=== PATIENT | female | born 1955 | race Two or more races ===

== ENCOUNTER 2017-11-23 14:09 | Inpatient (IN) | payer MEDICAID, MEDICARE ==
[~2017-11-23] VITALS: Ht 165.1 cm; Wt 85.2 kg
[2017-11-23 15:16] LABS: Hematocrit 42.9 % (36.0-46.0); Hemoglobin 14.6 g/dL (12.2-16.2); Mean Corpuscular Hemoglobin 29.9 pg (28.0-32.0); Mean Corpuscular Hgb Conc. 34.1 g/dL (32.0-36.0); Mean Corpuscular Volume 87.6 fL (80.0-100.0); Platelet Count (auto) 158 10^3/uL (140-450); Red Blood Cells 4.89 10^6/uL (4.0-5.20); Red Cell Distribution Width 13.5 % (11.8-14.3); White Blood Cell 17.5 10^3/uL (4.4-10.8)
[2017-11-23 15:25] LABS: Band Neutrophils % (manual) 0; Basophils % (manual) 0 (0.0-2.0); Blast Cells 0; Metamyelocytes % 0; Myelocytes % 0; Promyelocytes % 0; Reactive Lymphocytes 0
[2017-11-23 15:29] LABS: Alanine Aminotransferase 32 U/L (13-56); Albumin 3.6 g/dL (3.4-5.0); Anion Gap 12 (5-15); Aspartate Aminotransferase 22 U/L (15-37); BUN/Creatinine Ratio 15.1; Blood Urea Nitrogen 14 mg/dL (7-18); Calcium 8.9 mg/dL (8.5-10.1); Carbon Dioxide 20 mmol/L (21-32); Chloride 106 mmol/L (98-107); GFR African American 78 mL/min; GFR Non-African American 65 mL/min; Glucose 140 mg/dL (74-106); Magnesium 1.7 mg/dL (1.6-2.6); Potassium 3.6 mmol/L (3.5-5.1); Sodium 138 mmol/L (136-145)
[2017-11-23 15:34] LABS: Alkaline Phosphatase 88 U/L (45-117); Bilirubin, Total 0.5 mg/dL (0.2-1.0); Total Protein 7.7 g/dL (6.4-8.2)
[2017-11-23 15:44] LABS: Eosinophils % (manual) 1 (0-7); Lymphocytes % (manual) 4 (10.0-50.0); Monocytes % (manual) 7 (0-12)
[2017-11-23 15:50] LABS: Urine Bacteria MOD /hpf (None Seen); Urine Blood 2+ /uL (Negative); Urine Specific Gravity 1.016 (1.001-1.035); Urine WBC 8 /hpf (0 - 5)
[2017-11-23] MEDS ORDERED: SODIUM CHLORIDE 0.9% 500 ML IVB ONE (16:43)
[2017-11-23] MEDS ORDERED: ONDANSETRON HCL 4 MG/2 ML VIAL IV ONE (16:45)
[2017-11-23] MEDS ORDERED: MORPHINE SULFATE 8mg/ml INJ SDV IV ONE (16:45)
[2017-11-23] MEDS ORDERED: SODIUM CHLORIDE 0.9% 2,000 ML IV ONE (18:45)
[2017-11-23] MEDS ORDERED: NITROGLYCERIN 0.4 MG SL TAB SL PRN (18:45)
[2017-11-23] MEDS ORDERED: HYDROcodone-ACET 5/325MG TAB PO PRN (18:45)
[2017-11-23] MEDS ORDERED: MORPHINE SULFATE 8mg/ml INJ SDV IV PRN ×2 (18:45)
[2017-11-23] MEDS ORDERED: PROMETHAZINE HCL 25 MG/ML 1ML IV PRN (18:45)
[2017-11-23] MEDS ORDERED: PIPERACILLIN-TAZOB 3.375GM 100 ML IV ONE (18:45)
[2017-11-23] MEDS ORDERED: LORazepam 0.5 MG TAB PO PRN (18:45)
[2017-11-23] MEDS ORDERED: PANTOPRAZOLE 40 MG/10 ML VIAL IV ONE (18:45)
[2017-11-23] MEDS ORDERED: TEMAZEPAM 15 MG CAP PO PRN (18:45)
[2017-11-23] MEDS: ENOXAPARIN SOD 40 MG/0.4 ML SYRINGE SC SCH (19:10)
[2017-11-23] MEDS: SODIUM CHLORIDE 0.9% 1,000 ML IV SCH (20:45)
[2017-11-23 21:00] VITALS: BP 123/72
[2017-11-23 22:00] VITALS: BP 123/72
[2017-11-23] MEDS ORDERED: ATOR1TAB PO (23:26)
[2017-11-23] MEDS ORDERED: LISI40TA PO (23:26)
[2017-11-23] MEDS ORDERED: HYDR12.56 PO (23:26)
[2017-11-23] MEDS ORDERED: GLIM1TAB2 PO (23:27)
[2017-11-23] MEDS: PIPERACILLIN-TAZOB 3.375GM 100 ML IV SCH (23:32)
[2017-11-24] MEDS: SODIUM CHLORIDE 0.9% 1,000 ML IV SCH ×2 (04:39→14:43)
[2017-11-24 05:00] VITALS: BP 111/61
[2017-11-24] MEDS: PIPERACILLIN-TAZOB 3.375GM 100 ML IV SCH ×4 (05:37→23:33)
[2017-11-24] MEDS: ACETAMINOPHEN 500 MG TAB PO PRN ×2 (05:45→20:55)
[2017-11-24 06:28] LABS: Basophils # (auto) 0.1 uL; Basophils % (auto) 0.3 % (0.0-2.0); Eosinophils # (auto) 0 uL; Hemoglobin 12.5 g/dL (12.2-16.2); Lymphocytes # (auto) 1.6 uL; Lymphocytes % (auto) 10.9 % (10.0-50.0); Mean Corpuscular Hemoglobin 30.2 pg (28.0-32.0); Mean Corpuscular Hgb Conc. 34.8 g/dL (32.0-36.0); Mean Corpuscular Volume 86.8 fL (80.0-100.0); Monocytes # (auto) 0.8 uL; Monocytes % (auto) 5.4 % (0.0-12.0); Neutrophils # (auto) 12.1 uL; Neutrophils % (auto) 83.4 % (37.0-80.0); Nucleated Red Blood Cells % 0.2 %; Platelet Count (auto) 141 10^3/uL (140-450); Red Blood Cells 4.15 10^6/uL (4.0-5.20); Red Cell Distribution Width 13.6 % (11.8-14.3); White Blood Cell 14.6 10^3/uL (4.4-10.8)
[2017-11-24 06:46] LABS: Albumin 2.8 g/dL (3.4-5.0); BUN/Creatinine Ratio 17.9; Bilirubin, Total 0.6 mg/dL (0.2-1.0); Calcium 7.8 mg/dL (8.5-10.1); Total Protein 6.5 g/dL (6.4-8.2)
[2017-11-24 06:48] LABS: Potassium 2.8 mmol/L (3.5-5.1)
[2017-11-24] MEDS ORDERED: POTASSIUM CHL 20 Meq TABLET PO ONE (07:00)
[2017-11-24] MEDS ORDERED: HYDROcodone-ACET 5/325MG TAB PO PRN (07:45)
[2017-11-24] MEDS: CARISOPRODOL 350 MG TAB PO PRN ×2 (08:50→17:50)
[2017-11-24 08:58] VITALS: BP 102/56
[2017-11-24] MEDS: ENOXAPARIN SOD 40 MG/0.4 ML SYRINGE SC SCH (09:32)
[2017-11-24] MEDS: PANTOPRAZOLE 40 MG TAB PO SCH (09:32)
[2017-11-24 13:00] VITALS: BP 112/65
[2017-11-24 17:01] VITALS: BP 126/67
[2017-11-24] MEDS ORDERED: SODIUM CHLORIDE 0.9% 1,000 ML IV ONE (17:15)
[2017-11-24] MEDS ORDERED: ONDANSETRON HCL 4 MG/2 ML VIAL IV PRN (17:15)
[2017-11-24] MEDS: HYDROcodone-ACET 10/325MG TAB PO PRN (17:50)
[2017-11-24 18:00] VITALS: BP 138/71
[2017-11-25] MEDS: SODIUM CHLORIDE 0.9% 1,000 ML IV SCH ×3 (00:50→21:02)
[2017-11-25] MEDS: PIPERACILLIN-TAZOB 3.375GM 100 ML IV SCH ×4 (05:34→23:42)
[2017-11-25] MEDS: HYDROcodone-ACET 10/325MG TAB PO PRN ×5 (05:41→23:51)
[2017-11-25 05:44] LABS: Basophils # (auto) 0 uL; Basophils % (auto) 0.3 % (0.0-2.0); Eosinophils # (auto) 0 uL; Eosinophils % (auto) 0.2 % (0.0-7.0); Hematocrit 34.8 % (36.0-46.0); Hemoglobin 11.9 g/dL (12.2-16.2); Lymphocytes # (auto) 1.4 uL; Lymphocytes % (auto) 13.5 % (10.0-50.0); Mean Corpuscular Hgb Conc. 34.2 g/dL (32.0-36.0); Mean Corpuscular Volume 87.8 fL (80.0-100.0); Monocytes # (auto) 0.6 uL; Monocytes % (auto) 6.3 % (0.0-12.0); Neutrophils # (auto) 8.1 uL; Neutrophils % (auto) 79.7 % (37.0-80.0); Platelet Count (auto) 133 10^3/uL (140-450); Red Blood Cells 3.96 10^6/uL (4.0-5.20); Red Cell Distribution Width 13.9 % (11.8-14.3); White Blood Cell 10.2 10^3/uL (4.4-10.8)
[2017-11-25 06:04] LABS: Albumin 2.6 g/dL (3.4-5.0); BUN/Creatinine Ratio 13.3; Calcium 8.2 mg/dL (8.5-10.1); Potassium 3.2 mmol/L (3.5-5.1)
[2017-11-25 06:06] LABS: Bilirubin, Total 0.7 mg/dL (0.2-1.0); Total Protein 6.6 g/dL (6.4-8.2)
[2017-11-25 06:23] VITALS: BP 139/75
[2017-11-25] MEDS: CARISOPRODOL 350 MG TAB PO PRN ×2 (07:25→15:34)
[2017-11-25 08:18] VITALS: BP 141/66
[2017-11-25] MEDS: PANTOPRAZOLE 40 MG TAB PO SCH (10:21)
[2017-11-25] MEDS: ENOXAPARIN SOD 40 MG/0.4 ML SYRINGE SC SCH (10:21)
[2017-11-25] MEDS ORDERED: SODIUM CHLORIDE 0.9% 2,500 ML IV ONE (10:30)
[2017-11-25] MEDS ORDERED: MANNITOL 20 % (20GM/100ML) 62.5 ML IV ONE ×2 (10:30→19:00)
[2017-11-25] MEDS: HYDROmorphone HCL 2 MG/ML VL IV PRN ×3 (11:35→18:49)
[2017-11-25 12:00] VITALS: BP 142/72
[2017-11-25 16:55] VITALS: BP 149/81
[2017-11-25] MEDS: TAMSULOSIN HYDROCHLORIDE 0.4 MG CAP PO SCH (18:48)
[2017-11-25 22:00] VITALS: BP 135/77
[2017-11-26 05:00] VITALS: BP 138/75
[2017-11-26] MEDS: PIPERACILLIN-TAZOB 3.375GM 100 ML IV SCH (05:30)
[2017-11-26] MEDS: SODIUM CHLORIDE 0.9% 1,000 ML IV SCH ×3 (06:31→21:25)
[2017-11-26 08:00] VITALS: BP 140/74
[2017-11-26 08:39] VITALS: BP 140/74
[2017-11-26] MEDS: ENOXAPARIN SOD 40 MG/0.4 ML SYRINGE SC SCH (10:00)
[2017-11-26] MEDS: LEVOFLOXACIN 500 MG TAB PO SCH (11:14)
[2017-11-26] MEDS: PANTOPRAZOLE 40 MG TAB PO SCH (11:14)
[2017-11-26 13:00] VITALS: BP 155/78
[2017-11-26 16:55] VITALS: BP 138/75
[2017-11-26] MEDS: TAMSULOSIN HYDROCHLORIDE 0.4 MG CAP PO SCH (17:11)
[2017-11-26] MEDS: ACETAMINOPHEN 500 MG TAB PO PRN (21:43)
[2017-11-26 22:00] VITALS: BP 138/75
[2017-11-27 04:04] VITALS: BP 130/74
[2017-11-27 08:51] LABS: INR 0.95 (0.9-1.15); Partial Thromboplastin Time 28.9 sec (22.64-33.71); Prothrombin Time 10.3 sec (9.37-12.3)
[2017-11-27 09:00] VITALS: BP 148/80
[2017-11-27] MEDS: LEVOFLOXACIN 500 MG TAB PO SCH (10:00)
[2017-11-27] MEDS: PANTOPRAZOLE 40 MG TAB PO SCH (10:00)
[2017-11-27] MEDS ORDERED: ceFAZolin 1GM/100ML 50 ML IV ONE (11:04)
[2017-11-27] MEDS ORDERED: MIDAZOLAM HCL 1MG/1ML-2 ML VIAL ONE (11:48)
[2017-11-27] MEDS ORDERED: PROPOFOL 10 MG/ML 20 ML IV ONE (11:48)
[2017-11-27] MEDS ORDERED: LIDOCAINE 1% (LOCAL ANESTH.) PF 5ml SDV ONE (12:06)
[2017-11-27] MEDS ORDERED: METOCLOPRAMIDE HCL 5MG/ml INJ 2ml VIAL ONE (12:07)
[2017-11-27] MEDS ORDERED: fentaNYL CITRATE 100 MCG/2 ML VL ONE (12:16)
[2017-11-27] MEDS ORDERED: MORPHINE SULFATE 8mg/ml INJ SDV IV PRN (12:30)
[2017-11-27] MEDS ORDERED: NALOXONE HCL 0.4 MG/ML VIAL IV PRN (12:30)
[2017-11-27] MEDS ORDERED: ONDANSETRON HCL 4 MG/2 ML VIAL IV ONE (12:30)
[2017-11-27] MEDS ORDERED: ACCU-CHEK COMFORT CURVE STRIP VI ONE (12:30)
[2017-11-27] MEDS: SODIUM CHLORIDE 0.9% 1,000 ML IV SCH (12:43)
[2017-11-27 16:50] VITALS: BP 149/73
[2017-11-27] MEDS: TAMSULOSIN HYDROCHLORIDE 0.4 MG CAP PO SCH (17:12)
[2017-11-27 22:00] VITALS: BP 137/63
[2017-11-28 05:00] VITALS: BP 145/74
[2017-11-28 08:00] VITALS: BP 150/68
[2017-11-28 08:20] VITALS: BP 150/68
[2017-11-28] MEDS: PANTOPRAZOLE 40 MG TAB PO SCH (10:26)
[2017-11-28] MEDS: LEVOFLOXACIN 500 MG TAB PO SCH (10:26)
[2017-11-28 12:54] VITALS: BP 153/75
== END 2017-11-28 14:30 | disposition home or self-care (01) | DRG 720 ==
LOC: ER 14:09 → EDBD 14:10 → TELE 14:10 → TELE-WESTW 21:00
PROVIDERS: ADMIT Internal Medicine; ATTEND Family Medicine
PROC: 0TF Urinary System, Fragmentation (ICD-10-PCS; principal; 2017-11-27 12:01)
DX: A41.9 Sepsis, unspecified organism (principal); N13.2 Hydronephrosis with renal and ureteral calculous obstruction; E86.0 Dehydration; F17.210 Nicotine dependence, cigarettes, uncomplicated; N30.01 Acute cystitis with hematuria; Z83.3 Family history of diabetes mellitus; Z87.442 Personal history of urinary calculi
CPT/HCPCS: 36415; 74176; 80053; 81001; 82962; 83690; 83735; 84484; 85007; 85025; 85027; 85610; 85730; 87040; 87086; 87088; 87186; 93005; 94761; 96361; 96365; 96375; C9113; J0690; J2250; J2270; J2405; J2543; J2704

== ENCOUNTER 2020-08-28 18:39 | Inpatient (IN) | payer MEDICAID ==
[~2020-08-28] VITALS: Ht 162.6 cm; Wt 80.9 kg
[~2020-08-28 18:39] MED LIST: ATOR-47 PO; GLIM-5 PO; HYDR12.56 PO; LISI40TA11 PO
[2020-08-28 19:24] LABS: Basophils # (auto) 0 10 ^3/uL (0-0.2); Basophils % (auto) 0.6 % (0.0-2.0); Eosinophils # (auto) 0 10 ^3/uL (0-0.8); Hematocrit 42.9 % (36.0-46.0); Hemoglobin 14.9 g/dL (12.2-16.2); Lymphocytes # (auto) 0.6 10 ^3/uL (0.4-5.4); Lymphocytes % (auto) 14.9 % (10.0-50.0); Mean Corpuscular Hemoglobin 30.2 pg (28.0-32.0); Mean Corpuscular Hgb Conc. 34.7 g/dL (32.0-36.0); Monocytes # (auto) 0.3 10 ^3/uL (0-1.3); Monocytes % (auto) 8.1 % (0.0-12.0); Neutrophils # (auto) 3.2 10 ^3/uL (1.6-8.6); Neutrophils % (auto) 76.4 % (37.0-80.0); Nucleated Red Blood Cells % 0.1 %; Platelet Count (auto) 124 10^3/uL (140-450); Red Blood Cells 4.93 10^6/uL (4.0-5.20); Red Cell Distribution Width 13.4 % (11.8-14.3); White Blood Cell 4.2 10^3/uL (4.4-10.8)
[2020-08-28 19:44] LABS: Alanine Aminotransferase 162 U/L (13-56); Albumin 3.6 g/dL (3.4-5.0); Anion Gap 13 (5-15); Aspartate Aminotransferase 114 U/L (15-37); BUN/Creatinine Ratio 16.2; Blood Urea Nitrogen 12 mg/dL (7-18); Calcium 8.9 mg/dL (8.5-10.1); Carbon Dioxide 25 mmol/L (21-32); Chloride 93 mmol/L (98-107); GFR African American 101 mL/min; GFR Non-African American 83 mL/min; Glucose 279 mg/dL (74-106); Potassium 3.4 mmol/L (3.5-5.1); Sodium 131 mmol/L (136-145)
[2020-08-28 19:55] LABS: Alkaline Phosphatase 82 U/L (45-117); Bilirubin, Total 0.6 mg/dL (0.2-1.0); Total Protein 7.9 g/dL (6.4-8.2)
[2020-08-28] MEDS ORDERED: ACETAMINOPHEN 325 MG TAB PO ONE (20:30)
[2020-08-28] MEDS ORDERED: ZINC SULFATE 220mg CAP or TAB PO ONE (20:30)
[2020-08-28] MEDS ORDERED: DexAMETHasone SOD PHOS 10MG/1ML VIAL INJ IV ONE (20:30)
[2020-08-28] MEDS ORDERED: ASCORBIC ACID 500 MG TAB PO ONE (20:30)
[2020-08-28] MEDS ORDERED: AZITHROMYCIN 500MG/ 250ML 250 ML IV ONE (20:30)
[2020-08-28] MEDS ORDERED: ONDANSETRON HCL 4 MG/2 ML VIAL IV PRN (22:00)
[2020-08-28] MEDS: ASCORBIC ACID 500 MG TAB PO SCH (22:00)
[2020-08-28] MEDS ORDERED: NITROGLYCERIN 0.4 MG SL TAB SL PRN (22:15)
[2020-08-28] MEDS ORDERED: MORPHINE SULF INJ 2 MG/ML SYRINGE 1ML IV PRN (22:15)
[2020-08-29] VITALS: BP 111/66
[2020-08-29 00:23] VITALS: BP 111/66
[2020-08-29] MEDS: SODIUM CHLORIDE 0.9% 1,000 ML IV SCH ×3 (00:45→18:00)
[2020-08-29 06:27] LABS: Basophils # (auto) 0 10 ^3/uL (0-0.2); Basophils % (auto) 0.4 % (0.0-2.0); Eosinophils # (auto) 0 10 ^3/uL (0-0.8); Hematocrit 38.5 % (36.0-46.0); Hemoglobin 13.3 g/dL (12.2-16.2); Lymphocytes # (auto) 0.5 10 ^3/uL (0.4-5.4); Lymphocytes % (auto) 17.3 % (10.0-50.0); Mean Corpuscular Hemoglobin 30.1 pg (28.0-32.0); Mean Corpuscular Hgb Conc. 34.5 g/dL (32.0-36.0); Mean Corpuscular Volume 87.1 fL (80.0-100.0); Monocytes # (auto) 0.2 10 ^3/uL (0-1.3); Monocytes % (auto) 6.3 % (0.0-12.0); Neutrophils # (auto) 2.2 10 ^3/uL (1.6-8.6); Nucleated Red Blood Cells % 0.4 %; Platelet Count (auto) 120 10^3/uL (140-450); Red Blood Cells 4.42 10^6/uL (4.0-5.20); Red Cell Distribution Width 13.4 % (11.8-14.3); White Blood Cell 2.9 10^3/uL (4.4-10.8)
[2020-08-29 08:00] VITALS: BP 126/72
[2020-08-29] MEDS: ACETAMINOPHEN 500 MG TAB PO PRN ×2 (09:01→17:12)
[2020-08-29] MEDS: PANTOPRAZOLE 40 MG TAB PO SCH (09:34)
[2020-08-29] MEDS: AZITHROMYCIN 500MG/ 250ML 250 ML IV SCH (09:34)
[2020-08-29] MEDS: ENOXAPARIN SOD 40 MG/0.4 ML SYRINGE SC SCH (09:34)
[2020-08-29] MEDS: ASCORBIC ACID 500 MG TAB PO SCH ×2 (09:34→21:12)
[2020-08-29] MEDS: CHOLECALCIFEROL (VITD3) 2,000 UNIT CAP/TAB PO SCH (09:34)
[2020-08-29] MEDS: ZINC SULFATE 220mg CAP or TAB PO SCH (09:35)
[2020-08-29 09:39] LABS: Albumin 3.3 g/dL (3.4-5.0); Potassium 3.6 mmol/L (3.5-5.1)
[2020-08-29 09:45] LABS: BUN/Creatinine Ratio 26.1; Bilirubin, Total 0.4 mg/dL (0.2-1.0); Calcium 8.2 mg/dL (8.5-10.1); Total Protein 7.7 g/dL (6.4-8.2)
[2020-08-29] MEDS: ALBUTEROL SULF HFA 90MCG INH 200DOSE IN SCH ×3 (11:58→19:10)
[2020-08-29 15:58] VITALS: BP 154/77
[2020-08-29 18:11] LABS: Basophils # (auto) 0 10 ^3/uL (0-0.2); Basophils % (auto) 1.2 % (0.0-2.0); Eosinophils # (auto) 0 10 ^3/uL (0-0.8); Eosinophils % (auto) 0.1 % (0.0-7.0); Hematocrit 38.4 % (36.0-46.0); Hemoglobin 13.3 g/dL (12.2-16.2); Lymphocytes % (auto) 27.7 % (10.0-50.0); Mean Corpuscular Hemoglobin 30.4 pg (28.0-32.0); Mean Corpuscular Hgb Conc. 34.7 g/dL (32.0-36.0); Mean Corpuscular Volume 87.6 fL (80.0-100.0); Monocytes # (auto) 0.3 10 ^3/uL (0-1.3); Monocytes % (auto) 7.3 % (0.0-12.0); Neutrophils # (auto) 2.3 10 ^3/uL (1.6-8.6); Neutrophils % (auto) 63.7 % (37.0-80.0); Nucleated Red Blood Cells % 0.2 %; Platelet Count (auto) 119 10^3/uL (140-450); Red Blood Cells 4.38 10^6/uL (4.0-5.20); Red Cell Distribution Width 13.6 % (11.8-14.3); White Blood Cell 3.6 10^3/uL (4.4-10.8)
[2020-08-29] MEDS ORDERED: DEXTROSE (50%) 50ML SYRG IV PRN (22:30)
[2020-08-29] MEDS: ACCU-CHEK COMFORT CURVE STRIP VI SCH (23:02)
[2020-08-29] MEDS ORDERED: InsuLIN REG 1unit/0.01ml Soln (100units/ml) SC SCH (23:15)
[2020-08-30] VITALS: BP 143/80
[2020-08-30] MEDS: HYDROcodone-ACET 5/325MG TAB PO PRN ×2 (00:11→09:28)
[2020-08-30] MEDS: ACETAMINOPHEN 500 MG TAB PO PRN (01:28)
[2020-08-30] MEDS: SODIUM CHLORIDE 0.9% 1,000 ML IV SCH ×2 (05:00→14:00)
[2020-08-30] MEDS: ACCU-CHEK COMFORT CURVE STRIP VI SCH ×3 (06:32→17:56)
[2020-08-30] MEDS: InsuLIN REG 1unit/0.01ml Soln (100units/ml) SC SCH ×3 (06:33→17:56)
[2020-08-30] MEDS ORDERED: ACCU-CHEK COMFORT CURVE STRIP VI SCH (07:00)
[2020-08-30] MEDS ORDERED: InsuLIN REG 1unit/0.01ml Soln (100units/ml) SC SCH (07:00)
[2020-08-30 07:26] LABS: Basophils # (auto) 0 10 ^3/uL (0-0.2); Basophils % (auto) 0.5 % (0.0-2.0); Eosinophils # (auto) 0 10 ^3/uL (0-0.8); Hematocrit 34.7 % (36.0-46.0); Hemoglobin 12.2 g/dL (12.2-16.2); Lymphocytes # (auto) 0.9 10 ^3/uL (0.4-5.4); Lymphocytes % (auto) 30.7 % (10.0-50.0); Mean Corpuscular Hemoglobin 30.5 pg (28.0-32.0); Mean Corpuscular Hgb Conc. 35.2 g/dL (32.0-36.0); Mean Corpuscular Volume 86.6 fL (80.0-100.0); Monocytes # (auto) 0.1 10 ^3/uL (0-1.3); Monocytes % (auto) 4.8 % (0.0-12.0); Neutrophils # (auto) 1.9 10 ^3/uL (1.6-8.6); Nucleated Red Blood Cells % 0.3 %; Platelet Count (auto) 105 10^3/uL (140-450); Red Blood Cells 4.01 10^6/uL (4.0-5.20); Red Cell Distribution Width 13.5 % (11.8-14.3)
[2020-08-30 07:39] LABS: Potassium 3.1 mmol/L (3.5-5.1)
[2020-08-30 07:48] LABS: Albumin 2.7 g/dL (3.4-5.0); BUN/Creatinine Ratio 20.8; Bilirubin, Total 0.4 mg/dL (0.2-1.0); Calcium 7.6 mg/dL (8.5-10.1); Total Protein 6.7 g/dL (6.4-8.2)
[2020-08-30 07:54] VITALS: BP 116/55
[2020-08-30] MEDS: ENOXAPARIN SOD 40 MG/0.4 ML SYRINGE SC SCH (09:27)
[2020-08-30] MEDS: PANTOPRAZOLE 40 MG TAB PO SCH (09:27)
[2020-08-30] MEDS: ASCORBIC ACID 500 MG TAB PO SCH (09:27)
[2020-08-30] MEDS: AZITHROMYCIN 500MG/ 250ML 250 ML IV SCH (09:27)
[2020-08-30] MEDS: ZINC SULFATE 220mg CAP or TAB PO SCH (09:27)
[2020-08-30] MEDS: CHOLECALCIFEROL (VITD3) 2,000 UNIT CAP/TAB PO SCH (09:28)
[2020-08-30 16:00] VITALS: BP 122/58
[2020-08-30] MEDS ORDERED: CHOL1TAB42 PO (19:16)
[2020-08-30] MEDS ORDERED: AZIT250T8 PO (19:16)
[2020-08-30] MEDS ORDERED: ZINCCAP PO (19:16)
[2020-08-30] MEDS ORDERED: ASCO500T11 PO (19:16)
[2020-08-30] MEDS ORDERED: ALBUAER3 IN (19:16)
[2020-08-30 19:46] VITALS: BP 122/58
[2020-08-30] MEDS: ALBUTEROL SULF HFA 90MCG INH 200DOSE IN SCH ×2 (20:29)
== END 2020-08-30 22:00 | disposition home or self-care (01) | DRG 137 ==
LOC: ER 18:40 → OVERFLOW 22:17 → WEST WING 23:10
PROVIDERS: ADMIT Internal Medicine; ATTEND Internal Medicine
DX: U07.1 COVID-19 (principal); D69.6 Thrombocytopenia, unspecified; J12.82 Pneumonia due to coronavirus disease 2019; I10 Essential (primary) hypertension; E11.9 Type 2 diabetes mellitus without complications; Z83.3 Family history of diabetes mellitus
CPT/HCPCS: 36415; 71045; 80053; 82962; 84484; 85025; 87040; 87426; 93005; 94640; 96365; 96366; 96375; G0378; J1100; J1815

== ENCOUNTER → 2023-02-02 | Emergency (ER) | payer OTHER, MEDICAID ==
[~2023-02-02] VITALS: Ht 162.6 cm; Wt 83.5 kg
[~2023-02-02] MED LIST changes: +ALBUAER3 IN; +ASCO500T11 PO; +AUG875T PO; +AZIT-81 PO; +CHOL1TAB42 PO; +GLIM-38 PO; -GLIM-5 PO; -HYDR12.56 PO; +HYDR12.59 PO; -LISI40TA11 PO; +LISI40TA16 PO; +OXYMETAZOLINE HCL 0.05 % NASAL SPRAY 15ML EACHNOSTRI ONE; +PRED20TA2 PO; +ZINCCAP PO
[2023-02-03 02:15] VITALS: BP 170/68
== END | disposition home or self-care (01) ==
LOC: ER 23:06
DX: R04.0 Epistaxis (principal); F17.210 Nicotine dependence, cigarettes, uncomplicated; Z87.442 Personal history of urinary calculi; Z79.899 Other long term (current) drug therapy
CPT/HCPCS: 30901

== ENCOUNTER 2023-02-04 17:57 | Emergency (ER) | payer OTHER, MEDICAID ==
[~2023-02-04 17:57] MED LIST changes: -AUG875T PO; -OXYMETAZOLINE HCL 0.05 % NASAL SPRAY 15ML EACHNOSTRI ONE; -PRED20TA2 PO
[2023-02-04 19:01] LABS: Basophils # (auto) 0.1 10 ^3/uL (0-0.2); Basophils % (auto) 1.1 % (0.0-2.0); Eosinophils # (auto) 0 10 ^3/uL (0-0.8); Eosinophils % (auto) 0.4 % (0.0-7.0); Hematocrit 40.7 % (36.0-46.0); Hemoglobin 13.8 g/dL (12.2-16.2); Lymphocytes # (auto) 2.7 10 ^3/uL (0.4-5.4); Lymphocytes % (auto) 24.1 % (10.0-50.0); Mean Corpuscular Hemoglobin 27.6 pg (28.0-32.0); Mean Corpuscular Hgb Conc. 33.9 g/dL (32.0-36.0); Mean Corpuscular Volume 81.4 fL (80.0-100.0); Monocytes # (auto) 0.8 10 ^3/uL (0-1.3); Monocytes % (auto) 6.9 % (0.0-12.0); Neutrophils # (auto) 7.7 10 ^3/uL (1.6-8.6); Neutrophils % (auto) 67.5 % (37.0-80.0); Nucleated Red Blood Cells % 0.1 %; Red Blood Cells 5.01 10^6/uL (4.0-5.20); Red Cell Distribution Width 14.9 % (11.8-14.3); White Blood Cell 11.3 10^3/uL (4.4-10.8)
[2023-02-04 19:18] LABS: Calcium 9.6 mg/dL (8.5-10.1); Potassium 3.9 mmol/L (3.5-5.1)
[2023-02-04 19:21] LABS: BUN/Creatinine Ratio 16.1 (10.0-20.0); Bilirubin, Total 0.8 mg/dL (0.2-1.0); Total Protein 8.5 g/dL (6.4-8.2)
[2023-02-04] MEDS ORDERED: AUG875T PO (21:03)
[2023-02-04] MEDS ORDERED: PRED20TA2 PO (21:03)
[2023-02-04 21:30] VITALS: BP 134/71
== END 2023-02-04 21:30 | disposition home or self-care (01) ==
LOC: ER 17:57
DX: J01.00 Acute maxillary sinusitis, unspecified (principal); Z48.00 Encounter for change or removal of nonsurgical wound dressing; I10 Essential (primary) hypertension; E11.9 Type 2 diabetes mellitus without complications; F17.210 Nicotine dependence, cigarettes, uncomplicated; Z87.442 Personal history of urinary calculi; Z79.899 Other long term (current) drug therapy
CPT/HCPCS: 36415; 70486; 80053; 84484; 85025; 93005

== ENCOUNTER 2023-12-17 11:57 | Inpatient (IN) | payer OTHER, MEDICAID ==
[~2023-12-17] VITALS: Ht 167.6 cm; Wt 91.0 kg
[~2023-12-17 11:57] MED LIST changes: +AUG875T PO; +AZIT-185 PO; -AZIT-81 PO; +PRED20TA2 PO
[2023-12-17 12:59] LABS: Urine Bacteria FEW /hpf (None Seen); Urine Blood 3+ /uL (Negative); Urine Budding Yeast OCCASIONAL /hpf (None Seen); Urine Clarity Turbid (Clear); Urine Color Colorless (Yellow); Urine Protein, UAD 1+ (Negative); Urine Urobilinogen Normal (Negative); Urine WBC 36 /hpf (0 - 5); Urine pH 5.5 (5.0-9.0)
[2023-12-17 13:50] LABS: Basophils # (auto) 0.1 10 ^3/uL (0-0.2); Basophils % (auto) 0.9 % (0.0-2.0); Eosinophils # (auto) 0.2 10 ^3/uL (0-0.8); Eosinophils % (auto) 2.9 % (0.0-7.0); Hematocrit 38.8 % (36.0-46.0); Lymphocytes # (auto) 2.2 10 ^3/uL (0.4-5.4); Lymphocytes % (auto) 29.1 % (10.0-50.0); Mean Corpuscular Hemoglobin 27.5 pg (28.0-32.0); Mean Corpuscular Hgb Conc. 33.4 g/dL (32.0-36.0); Mean Corpuscular Volume 82.2 fL (80.0-100.0); Monocytes # (auto) 0.4 10 ^3/uL (0-1.3); Monocytes % (auto) 5.3 % (0.0-12.0); Neutrophils # (auto) 4.8 10 ^3/uL (1.6-8.6); Neutrophils % (auto) 61.8 % (37.0-80.0); Red Blood Cells 4.72 10^6/uL (4.0-5.20); Red Cell Distribution Width 15.6 % (11.8-14.3); White Blood Cell 7.7 10^3/uL (4.4-10.8)
[2023-12-17] MEDS: SODIUM CHLORIDE 0.9% 1,000 ML IVB ONE (13:51)
[2023-12-17] MEDS: ONDANSETRON HCL 4 MG/2 ML VIAL IV ONE (13:52)
[2023-12-17] MEDS: KETOROLAC TROMETH 30 MG/ML 1ML VIAL IV ONE (13:52)
[2023-12-17 13:58] LABS: Chloride 105 mmol/L (98-107); Potassium 3.7 mmol/L (3.5-5.1); Sodium 139 mmol/L (136-145)
[2023-12-17 13:59] LABS: Anion Gap 8 (5-15); Calcium 10.5 mg/dL (8.5-10.1); Carbon Dioxide 26 mmol/L (20-30)
[2023-12-17 14:04] LABS: BUN/Creatinine Ratio 20.8 (10.0-20.0); Blood Urea Nitrogen 16 mg/dL (9-23); Glucose 137 mg/dL (74-106)
[2023-12-17] MEDS ORDERED: ONDANSETRON HCL 4 MG/2 ML VIAL IV PRN (18:30)
[2023-12-17] MEDS ORDERED: DOCUSATE SOD 100 MG CAP PO PRN (18:30)
[2023-12-17] MEDS ORDERED: DEXTROSE (50%) 50ML SYRG IV PRN (18:30)
[2023-12-17] MEDS ORDERED: NITROGLYCERIN 0.4 MG SL TAB SL PRN (18:30)
[2023-12-17] MEDS ORDERED: MORPHINE SULFATE INJ 2 MG/ml SYRG IV PRN (18:30)
[2023-12-17] MEDS ORDERED: GAB100C PO (18:31)
[2023-12-17] MEDS ORDERED: HYDR25TA5 PO (18:31)
[2023-12-17] MEDS ORDERED: ROSU40TA47 PO (18:31)
[2023-12-17] MEDS ORDERED: FENO145T27 PO (18:31)
[2023-12-17] MEDS ORDERED: LISI10TA34 PO (18:31)
[2023-12-17] MEDS: SODIUM CHLORIDE 0.9% 1,000 ML IV ONE (21:02)
[2023-12-17] MEDS: PANTOPRAZOLE 40 MG TAB PO ONE (21:03)
[2023-12-17] MEDS: HYDROcodone-ACET 5/325MG TAB PO PRN (21:03)
[2023-12-17] MEDS: TAMSULOSIN HYDROCHLORIDE 0.4 MG CAP PO SCH (21:09)
[2023-12-18] VITALS (9 sets, daily range): BP systolic 140–152; BP diastolic 65–76; PULSE 71–88; RESP 16–19; TEMP 97.9–98.5; O2SAT 94–98
[2023-12-18] MEDS: GABAPENTIN 100 MG CAP PO SCH (01:52)
[2023-12-18] MEDS: ACCU-CHEK COMFORT CURVE STRIP VI SCH (01:53)
[2023-12-18] MEDS: InsuLIN REG 1unit/0.01ml Soln (100units/ml) SC SCH (02:03)
[2023-12-18 04:42] LABS: Basophils # (auto) 0 10 ^3/uL (0-0.2); Basophils % (auto) 0.9 % (0.0-2.0); Eosinophils # (auto) 0.2 10 ^3/uL (0-0.8); Eosinophils % (auto) 3.2 % (0.0-7.0); Hematocrit 34.3 % (36.0-46.0); Hemoglobin 11.3 g/dL (12.2-16.2); Lymphocytes # (auto) 1.9 10 ^3/uL (0.4-5.4); Lymphocytes % (auto) 34.1 % (10.0-50.0); Mean Corpuscular Hemoglobin 27.3 pg (28.0-32.0); Mean Corpuscular Hgb Conc. 33.1 g/dL (32.0-36.0); Mean Corpuscular Volume 82.6 fL (80.0-100.0); Monocytes # (auto) 0.3 10 ^3/uL (0-1.3); Monocytes % (auto) 5.9 % (0.0-12.0); Neutrophils # (auto) 3.1 10 ^3/uL (1.6-8.6); Neutrophils % (auto) 55.9 % (37.0-80.0); Nucleated Red Blood Cells % 0.1 %; Red Blood Cells 4.15 10^6/uL (4.0-5.20); Red Cell Distribution Width 15.7 % (11.8-14.3); White Blood Cell 5.6 10^3/uL (4.4-10.8)
[2023-12-18 04:57] LABS: Alanine Aminotransferase 78 U/L (7-40); Albumin 4.3 g/dL (3.2-4.8); Alkaline Phosphatase 62 U/L (46-116); Anion Gap 5 (5-15); Aspartate Aminotransferase 62 U/L (13-40); BUN/Creatinine Ratio 25.6 (10.0-20.0); Blood Urea Nitrogen 21 mg/dL (9-23); Calcium 9.8 mg/dL (8.5-10.1); Carbon Dioxide 26 mmol/L (20-30); Chloride 107 mmol/L (98-107); Glucose 165 mg/dL (74-106); Potassium 3.9 mmol/L (3.5-5.1); Sodium 138 mmol/L (136-145); Triglycerides 439 mg/dL (< 150)
[2023-12-18 04:58] LABS: Bilirubin, Total 0.3 mg/dL (0.2-1.0); Cholesterol 257 mg/dL (< 200); HDL Cholesterol 28 mg/dL (40-59); Total Protein 6.9 g/dL (5.7-8.2)
[2023-12-18] MEDS ORDERED: METF-371 PO (05:20)
[2023-12-18] MEDS ORDERED: INSU1INJ19 SC (05:20)
[2023-12-18] MEDS ORDERED: GLIM4TAB42 PO (05:20)
[2023-12-18] MEDS ORDERED: LISI20TA56 PO (07:49)
[2023-12-18] MEDS ORDERED: OMEP1CAP70 PO (07:49)
[2023-12-18] MEDS ORDERED: EMPA1TAB3 PO (07:49)
[2023-12-18] MEDS: ATORVASTATIN 20 MG TAB PO SCH (09:22)
[2023-12-18] MEDS: PANTOPRAZOLE 40 MG TAB PO SCH (09:24)
[2023-12-18] MEDS: ENOXAPARIN SOD 40 MG/0.4 ML SYRINGE SC SCH (09:26)
[2023-12-18] MEDS: cefTRIAXone 1GM/50ML D5W 50 ML IV SCH (09:27)
[2023-12-18] MEDS: hydroCHLOROthiazide 25 MG TAB PO SCH (09:29)
[2023-12-18] MEDS: LISINOPRIL 5 MG TAB PO SCH (09:32)
[2023-12-18] MEDS: ACETAMINOPHEN 325 MG TAB PO PRN (09:36)
[2023-12-18] MEDS: FENOFIBRATE 145MG TABLET PO SCH (10:00)
[2023-12-18] MEDS: MORPHINE SULFATE INJ 2 MG/ml SYRG IV PRN (16:00)
[2023-12-19] VITALS (8 sets, daily range): BP systolic 127–163; BP diastolic 68–83; PULSE 68–97; RESP 18–21; TEMP 97.7–98.1; O2SAT 92–98
[2023-12-19 06:43] LABS: Chloride 105 mmol/L (98-107); Sodium 136 mmol/L (136-145)
[2023-12-19 06:45] LABS: Anion Gap 6 (5-15); Calcium 9.6 mg/dL (8.7-10.4); Carbon Dioxide 25 mmol/L (20-30)
[2023-12-19 06:50] LABS: BUN/Creatinine Ratio 17.1 (10.0-20.0); Blood Urea Nitrogen 13 mg/dL (9-23); Glucose 291 mg/dL (74-106)
[2023-12-19 07:03] LABS: Basophils # (auto) 0 10 ^3/uL (0-0.2); Basophils % (auto) 0.9 % (0.0-2.0); Eosinophils # (auto) 0.2 10 ^3/uL (0-0.8); Eosinophils % (auto) 3.8 % (0.0-7.0); Hematocrit 34.5 % (36.0-46.0); Hemoglobin 11.5 g/dL (12.2-16.2); Lymphocytes # (auto) 1.5 10 ^3/uL (0.4-5.4); Lymphocytes % (auto) 32.2 % (10.0-50.0); Mean Corpuscular Hemoglobin 27.7 pg (28.0-32.0); Mean Corpuscular Hgb Conc. 33.5 g/dL (32.0-36.0); Mean Corpuscular Volume 82.7 fL (80.0-100.0); Monocytes # (auto) 0.3 10 ^3/uL (0-1.3); Monocytes % (auto) 6.1 % (0.0-12.0); Neutrophils # (auto) 2.6 10 ^3/uL (1.6-8.6); Nucleated Red Blood Cells % 0.1 %; Red Blood Cells 4.17 10^6/uL (4.0-5.20); Red Cell Distribution Width 15.7 % (11.8-14.3); White Blood Cell 4.5 10^3/uL (4.4-10.8)
[2023-12-20 01:00] VITALS: BP 122/62; PULSE 84; RESP 18; TEMP 98.1; O2SAT 93
[2023-12-20 05:00] VITALS: BP 136/74; PULSE 84; RESP 18; TEMP 97.6; O2SAT 94
[2023-12-20 07:38] LABS: Anion Gap 8 (5-15); Basophils # (auto) 0.1 10 ^3/uL (0-0.2); Carbon Dioxide 25 mmol/L (20-30); Chloride 103 mmol/L (98-107); Eosinophils # (auto) 0.2 10 ^3/uL (0-0.8); Eosinophils % (auto) 3.1 % (0.0-7.0); Hematocrit 35.8 % (36.0-46.0); Lymphocytes # (auto) 1.8 10 ^3/uL (0.4-5.4); Lymphocytes % (auto) 32.4 % (10.0-50.0); Mean Corpuscular Hemoglobin 27.7 pg (28.0-32.0); Mean Corpuscular Hgb Conc. 33.5 g/dL (32.0-36.0); Mean Corpuscular Volume 82.5 fL (80.0-100.0); Monocytes # (auto) 0.3 10 ^3/uL (0-1.3); Neutrophils # (auto) 3.3 10 ^3/uL (1.6-8.6); Neutrophils % (auto) 58.5 % (37.0-80.0); Nucleated Red Blood Cells % 0.1 %; Potassium 3.8 mmol/L (3.5-5.1); Red Blood Cells 4.35 10^6/uL (4.0-5.20); Red Cell Distribution Width 15.5 % (11.8-14.3); Sodium 136 mmol/L (136-145); White Blood Cell 5.7 10^3/uL (4.4-10.8)
[2023-12-20 07:40] LABS: Calcium 10.1 mg/dL (8.7-10.4)
[2023-12-20 07:44] LABS: BUN/Creatinine Ratio 17.1 (10.0-20.0); Blood Urea Nitrogen 12 mg/dL (9-23); Glucose 287 mg/dL (74-106)
[2023-12-20 08:00] VITALS: PULSE 84; PULSE 89; RESP 18; O2SAT 94
[2023-12-20 09:00] VITALS: BP 164/75; PULSE 80; RESP 18; TEMP 98.2; O2SAT 96
[2023-12-20 13:00] VITALS: BP 167/71; PULSE 84; RESP 20; TEMP 98.4; O2SAT 95
[2023-12-20] MEDS ORDERED: TAMS-35 PO (17:40)
[2023-12-20] MEDS ORDERED: CEPH250C PO (17:40)
[2023-12-20 18:36] VITALS: BP 142/70; PULSE 89; RESP 18; TEMP 98.7; O2SAT 95
[2023-12-21] MEDS ORDERED: LISINOPRIL 20 MG TAB PO SCH (10:00)
== END 2023-12-20 19:30 | disposition home or self-care (01) | DRG 690 ==
LOC: ER 11:57 → TELE 18:29 → TELE-WESTW 12-18 05:00
PROVIDERS: ADMIT Nurse Practitioner Family; ATTEND Internal Medicine
DX: N30.01 Acute cystitis with hematuria (principal); N13.6 Pyonephrosis; K80.20 Calculus of gallbladder without cholecystitis without obstruction; E11.9 Type 2 diabetes mellitus without complications; I10 Essential (primary) hypertension; E78.5 Hyperlipidemia, unspecified; K76.0 Fatty (change of) liver, not elsewhere classified; E66.9 Obesity, unspecified; Z87.442 Personal history of urinary calculi; Z79.899 Other long term (current) drug therapy; Z79.2 Long term (current) use of antibiotics; Z87.891 Personal history of nicotine dependence; Z79.84 Long term (current) use of oral hypoglycemic drugs; Z83.3 Family history of diabetes mellitus; Z68.32 Body mass index [BMI] 32.0-32.9, adult
CPT/HCPCS: 36415; 71045; 74176; 80048; 80053; 80061; 81001; 82962; 83036; 84439; 84443; 85025; 87086; G0378; J1815; J1885; J2405

== ENCOUNTER 2024-03-03 09:47 | Inpatient (IN) | payer OTHER, MEDICAID ==
[~2024-03-03] VITALS: Ht 162.6 cm; Wt 78.4 kg
[~2024-03-03 09:47] MED LIST changes: -ALBUAER3 IN; -ASCO500T11 PO; -ATOR-47 PO; -AUG875T PO; -AZIT-185 PO; +CEPH250C PO; -CHOL1TAB42 PO; +EMPA1TAB3 PO; +FENO145T27 PO; +GAB100C PO; +GABA-1250 PO; -GLIM-38 PO; +GLIM4TAB42 PO; -HYDR12.59 PO; +HYDR25TA5 PO; +INSU1INJ19 SC; +LISI20TA56 PO; -LISI40TA16 PO; +METF-371 PO; +OMEP1CAP70 PO; -PRED20TA2 PO; +ROSU40TA47 PO; +TAMS-35 PO; -ZINCCAP PO; +ZOFR4T PO
[2024-03-03 10:51] LABS: Urine Bacteria FEW /hpf (None Seen); Urine Blood 2+ /uL (Negative); Urine Budding Yeast OCCASIONAL /hpf (None Seen); Urine Clarity Clear (Clear); Urine Color Light-Yellow (Yellow); Urine Protein, UAD 1+ (Negative); Urine Specific Gravity 1.016 (1.001-1.035); Urine Urobilinogen Normal (Negative); Urine WBC 31 /hpf (0 - 5); Urine pH 5.5 (5.0-9.0)
[2024-03-03 11:20] LABS: Basophils # (auto) 0.1 10 ^3/uL (0-0.2); Basophils % (auto) 0.9 % (0.0-2.0); Eosinophils # (auto) 0.2 10 ^3/uL (0-0.8); Eosinophils % (auto) 3.9 % (0.0-7.0); Hematocrit 37.9 % (36.0-46.0); Hemoglobin 12.7 g/dL (12.2-16.2); Lymphocytes # (auto) 1.8 10 ^3/uL (0.4-5.4); Lymphocytes % (auto) 30.3 % (10.0-50.0); Mean Corpuscular Hemoglobin 27.7 pg (28.0-32.0); Mean Corpuscular Hgb Conc. 33.4 g/dL (32.0-36.0); Mean Corpuscular Volume 82.9 fL (80.0-100.0); Monocytes # (auto) 0.3 10 ^3/uL (0-1.3); Monocytes % (auto) 4.9 % (0.0-12.0); Neutrophils # (auto) 3.6 10 ^3/uL (1.6-8.6); Red Blood Cells 4.58 10^6/uL (4.0-5.20); Red Cell Distribution Width 15.2 % (11.8-14.3)
[2024-03-03] MEDS: SODIUM CHLORIDE 0.9% 1,000 ML IV ONE (11:21)
[2024-03-03] MEDS: ONDANSETRON HCL 4 MG/2 ML VIAL IV ONE ×2 (11:32→13:16)
[2024-03-03] MEDS: MORPHINE SULFATE INJ 2 MG/ml SYRG IV ONE (11:33)
[2024-03-03 11:43] LABS: Chloride 103 mmol/L (98-107); Potassium 3.5 mmol/L (3.5-5.1); Sodium 137 mmol/L (136-145)
[2024-03-03 11:44] LABS: Anion Gap 8 (5-15); Calcium 9.7 mg/dL (8.7-10.4); Carbon Dioxide 26 mmol/L (20-30)
[2024-03-03 11:49] LABS: BUN/Creatinine Ratio 14.6 (10.0-20.0); Blood Urea Nitrogen 12 mg/dL (9-23); Glucose 262 mg/dL (74-106)
[2024-03-03] MEDS ORDERED: NITROGLYCERIN 0.4 MG SL TAB SL PRN (13:45)
[2024-03-03] MEDS ORDERED: DOCUSATE SOD 100 MG CAP PO PRN (13:45)
[2024-03-03] MEDS: SODIUM CHLORIDE 0.9% 1,000 ML IV SCH (14:01)
[2024-03-03 14:47] LABS: INR 1.08 (0.9-1.15); Partial Thromboplastin Time 30.7 SEC (24.5-34.5); Prothrombin Time 11.4 sec (9.3-11.8)
[2024-03-03 15:20] VITALS: PULSE 89; RESP 15; O2SAT 90
[2024-03-03] MEDS: cefTRIAXone 1GM/50ML D5W 50 ML IV ONE (15:29)
[2024-03-03 17:30] VITALS: BP 162/70; PULSE 89; RESP 16; TEMP 98; O2SAT 90
[2024-03-03] MEDS: TAMSULOSIN HYDROCHLORIDE 0.4 MG CAP PO SCH (19:04)
[2024-03-03] MEDS: MORPHINE SULFATE INJ 2 MG/ml SYRG IV PRN (19:49)
[2024-03-03 20:00] VITALS: PULSE 71; RESP 18
[2024-03-03 21:00] VITALS: BP 154/63; PULSE 87; RESP 20; TEMP 97.9; O2SAT 92
[2024-03-04] VITALS (12 sets, daily range): BP systolic 110–158; BP diastolic 56–83; PULSE 70–100; RESP 13–24; TEMP 96.4–99.2; O2SAT 91–97
[2024-03-04] MEDS ORDERED: DEXTROSE (50%) 50ML SYRG IV PRN (00:15)
[2024-03-04] MEDS: InsuLIN REG 1unit/0.01ml Soln (100units/ml) SC SCH ×2 (05:17→22:05)
[2024-03-04] MEDS: ACCU-CHEK COMFORT CURVE STRIP VI SCH (05:22)
[2024-03-04] MEDS: PANTOPRAZOLE 40 MG TAB PO SCH (05:22)
[2024-03-04 06:38] LABS: Alanine Aminotransferase 61 U/L (7-40); Albumin 3.9 g/dL (3.2-4.8); Alkaline Phosphatase 52 U/L (46-116); Anion Gap 7 (5-15); BUN/Creatinine Ratio 15.1 (10.0-20.0); Blood Urea Nitrogen 11 mg/dL (9-23); Calcium 9.4 mg/dL (8.7-10.4); Carbon Dioxide 25 mmol/L (20-30); Chloride 108 mmol/L (98-107); Glucose 206 mg/dL (74-106); Potassium 3.8 mmol/L (3.5-5.1); Sodium 140 mmol/L (136-145)
[2024-03-04 06:39] LABS: Aspartate Aminotransferase 72 U/L (13-40); Basophils # (auto) 0.1 10 ^3/uL (0-0.2); Basophils % (auto) 1.1 % (0.0-2.0); Bilirubin, Total 0.3 mg/dL (0.2-1.0); Eosinophils # (auto) 0.1 10 ^3/uL (0-0.8); Eosinophils % (auto) 2.9 % (0.0-7.0); Hematocrit 33.8 % (36.0-46.0); Hemoglobin 11.4 g/dL (12.2-16.2); Lymphocytes # (auto) 1.6 10 ^3/uL (0.4-5.4); Lymphocytes % (auto) 33.5 % (10.0-50.0); Mean Corpuscular Hemoglobin 27.8 pg (28.0-32.0); Mean Corpuscular Hgb Conc. 33.6 g/dL (32.0-36.0); Mean Corpuscular Volume 82.8 fL (80.0-100.0); Monocytes # (auto) 0.3 10 ^3/uL (0-1.3); Monocytes % (auto) 5.2 % (0.0-12.0); Neutrophils # (auto) 2.8 10 ^3/uL (1.6-8.6); Neutrophils % (auto) 57.3 % (37.0-80.0); Nucleated Red Blood Cells % 0.2 %; Red Blood Cells 4.08 10^6/uL (4.0-5.20); Red Cell Distribution Width 14.9 % (11.8-14.3); Total Protein 6.3 g/dL (5.7-8.2); White Blood Cell 4.9 10^3/uL (4.4-10.8)
[2024-03-04] MEDS: Fenofibrate 1 TAB PO SCH (08:37)
[2024-03-04] MEDS: ATORVASTATIN 20 MG TAB PO SCH (08:51)
[2024-03-04] MEDS: cefTRIAXone 1GM/50ML D5W 50 ML IV SCH (08:51)
[2024-03-04] MEDS: metroNIDAZOLE 500MG/100ML 100 ML IV SCH (14:00)
[2024-03-04] MEDS: IODIXANOL 320MG/ML 100ML BTL IV ONE (15:31)
[2024-03-04] MEDS: fentaNYL CITRATE 100 MCG/2 ML VL ONE (15:46)
[2024-03-04] MEDS: MIDAZOLAM HCL 2MG/2ML 2ml VIAL (1mg/ml) ONE (15:46)
[2024-03-04] MEDS: LIDOCAINE 2%HCL (LOCAL ANESTH.) INJ 20ML MDV ONE (15:58)
[2024-03-04] MEDS: hydrALAZINE HCL 20 MG/ML VL ONE (16:06)
[2024-03-04] MEDS: ONDANSETRON HCL 4 MG/2 ML VIAL IV PRN (18:25)
[2024-03-05 05:00] VITALS: BP 165/71; PULSE 97; RESP 24; TEMP 98.7; O2SAT 89
[2024-03-05 05:54] LABS: Basophils # (auto) 0 10 ^3/uL (0-0.2); Basophils % (auto) 0.7 % (0.0-2.0); Eosinophils # (auto) 0 10 ^3/uL (0-0.8); Eosinophils % (auto) 0.6 % (0.0-7.0); Hematocrit 35.6 % (36.0-46.0); Hemoglobin 12.1 g/dL (12.2-16.2); Lymphocytes # (auto) 1.6 10 ^3/uL (0.4-5.4); Mean Corpuscular Hemoglobin 27.7 pg (28.0-32.0); Mean Corpuscular Hgb Conc. 33.9 g/dL (32.0-36.0); Mean Corpuscular Volume 81.6 fL (80.0-100.0); Monocytes # (auto) 0.4 10 ^3/uL (0-1.3); Monocytes % (auto) 6.3 % (0.0-12.0); Neutrophils # (auto) 4.2 10 ^3/uL (1.6-8.6); Neutrophils % (auto) 67.4 % (37.0-80.0); Nucleated Red Blood Cells % 0.1 %; Red Blood Cells 4.36 10^6/uL (4.0-5.20); Red Cell Distribution Width 15.2 % (11.8-14.3); White Blood Cell 6.3 10^3/uL (4.4-10.8)
[2024-03-05 06:10] LABS: Alanine Aminotransferase 79 U/L (7-40); Albumin 4.2 g/dL (3.2-4.8); Alkaline Phosphatase 57 U/L (46-116); Anion Gap 9 (5-15); Aspartate Aminotransferase 80 U/L (13-40); BUN/Creatinine Ratio 17.3 (10.0-20.0); Blood Urea Nitrogen 13 mg/dL (9-23); Calcium 9.7 mg/dL (8.7-10.4); Carbon Dioxide 26 mmol/L (20-30); Chloride 106 mmol/L (98-107); Glucose 195 mg/dL (74-106); LDL Cholesterol 170 mg/dL (< 100); Magnesium 1.9 mg/dL (1.6-2.6); Potassium 3.7 mmol/L (3.5-5.1); Sodium 141 mmol/L (136-145); Triglycerides 339 mg/dL (< 150)
[2024-03-05 06:11] LABS: Bilirubin, Total 0.4 mg/dL (0.2-1.0); Cholesterol 257 mg/dL (< 200); HDL Cholesterol 28 mg/dL (40-59); Total Protein 6.7 g/dL (5.7-8.2)
[2024-03-05 08:20] VITALS: BP 152/66; PULSE 99; RESP 19; TEMP 98.3; O2SAT 92
[2024-03-05 12:20] VITALS: BP 173/77; PULSE 91; RESP 19; TEMP 98.1; O2SAT 94
[2024-03-05 13:32] VITALS: BP 147/61
[2024-03-05 16:10] VITALS: BP 141/63; PULSE 89; RESP 18; TEMP 98.4; O2SAT 93
[2024-03-05 21:00] VITALS: BP 159/69; PULSE 93; RESP 18; TEMP 98.1; O2SAT 92
[2024-03-05] MEDS: hydrALAZINE HCL 20 MG/ML VL IV PRN (21:09)
[2024-03-06 05:00] VITALS: BP 165/81; PULSE 83; RESP 18; TEMP 98.3; O2SAT 94
[2024-03-06 05:38] LABS: Basophils # (auto) 0.1 10 ^3/uL (0-0.2); Eosinophils # (auto) 0.1 10 ^3/uL (0-0.8); Eosinophils % (auto) 2.5 % (0.0-7.0); Hematocrit 35.2 % (36.0-46.0); Hemoglobin 12.1 g/dL (12.2-16.2); Lymphocytes # (auto) 1.9 10 ^3/uL (0.4-5.4); Lymphocytes % (auto) 34.4 % (10.0-50.0); Mean Corpuscular Hemoglobin 28.3 pg (28.0-32.0); Mean Corpuscular Hgb Conc. 34.4 g/dL (32.0-36.0); Mean Corpuscular Volume 82.1 fL (80.0-100.0); Monocytes # (auto) 0.3 10 ^3/uL (0-1.3); Monocytes % (auto) 5.8 % (0.0-12.0); Neutrophils % (auto) 56.3 % (37.0-80.0); Red Blood Cells 4.28 10^6/uL (4.0-5.20); Red Cell Distribution Width 15.1 % (11.8-14.3); White Blood Cell 5.4 10^3/uL (4.4-10.8)
[2024-03-06 05:56] LABS: Alanine Aminotransferase 67 U/L (7-40); Albumin 4.1 g/dL (3.2-4.8); Alkaline Phosphatase 55 U/L (46-116); Anion Gap 9 (5-15); Aspartate Aminotransferase 66 U/L (13-40); BUN/Creatinine Ratio 16.7 (10.0-20.0); Blood Urea Nitrogen 12 mg/dL (9-23); Carbon Dioxide 23 mmol/L (20-30); Chloride 108 mmol/L (98-107); Glucose 243 mg/dL (74-106); Magnesium 1.9 mg/dL (1.6-2.6); Potassium 3.5 mmol/L (3.5-5.1); Sodium 140 mmol/L (136-145)
[2024-03-06 05:57] LABS: Bilirubin, Total 0.4 mg/dL (0.2-1.0); Total Protein 6.9 g/dL (5.7-8.2)
[2024-03-06 09:00] VITALS: BP 156/78; PULSE 94; RESP 20; TEMP 98; O2SAT 92
[2024-03-06] MEDS: METOCLOPRAMIDE HCL 5MG/ml INJ 2ml VIAL IV PRN (12:01)
[2024-03-06 13:00] VITALS: BP 145/74; PULSE 98; RESP 20; TEMP 97.9; O2SAT 98
[2024-03-06 17:00] VITALS: BP 160/73; PULSE 99; RESP 16; TEMP 98.3; O2SAT 90
[2024-03-06] MEDS: HYDROmorphone HCL 2 MG/ML VL/or syr IV PRN (17:01)
[2024-03-06 21:00] VITALS: BP 145/74; PULSE 95; RESP 16; TEMP 98.3; O2SAT 91
[2024-03-07] VITALS (13 sets, daily range): BP systolic 133–177; BP diastolic 45–83; PULSE 80–98; RESP 16–24; TEMP 98.3–99.1; O2SAT 90–96
[2024-03-07 05:13] LABS: Basophils # (auto) 0.1 10 ^3/uL (0-0.2); Basophils % (auto) 0.9 % (0.0-2.0); Eosinophils # (auto) 0 10 ^3/uL (0-0.8); Eosinophils % (auto) 0.6 % (0.0-7.0); Hematocrit 35.3 % (36.0-46.0); Lymphocytes # (auto) 1.7 10 ^3/uL (0.4-5.4); Lymphocytes % (auto) 27.8 % (10.0-50.0); Mean Corpuscular Volume 82.5 fL (80.0-100.0); Monocytes # (auto) 0.4 10 ^3/uL (0-1.3); Monocytes % (auto) 6.1 % (0.0-12.0); Neutrophils # (auto) 3.9 10 ^3/uL (1.6-8.6); Neutrophils % (auto) 64.6 % (37.0-80.0); Red Blood Cells 4.28 10^6/uL (4.0-5.20); Red Cell Distribution Width 15.6 % (11.8-14.3)
[2024-03-07 05:27] LABS: Alanine Aminotransferase 56 U/L (7-40); Alkaline Phosphatase 56 U/L (46-116); Anion Gap 8 (5-15); Aspartate Aminotransferase 43 U/L (13-40); BUN/Creatinine Ratio 17.1 (10.0-20.0); Bilirubin, Total 0.4 mg/dL (0.2-1.0); Blood Urea Nitrogen 12 mg/dL (9-23); Carbon Dioxide 24 mmol/L (20-30); Chloride 107 mmol/L (98-107); Glucose 234 mg/dL (74-106); Magnesium 1.9 mg/dL (1.6-2.6); Potassium 3.5 mmol/L (3.5-5.1); Sodium 139 mmol/L (136-145); Total Protein 6.7 g/dL (5.7-8.2)
[2024-03-07] MEDS ORDERED: HYDR25TA4 PO (09:48)
[2024-03-07] MEDS: IODIXANOL 320MG/ML 100ML BTL IV ONE (14:40)
[2024-03-07] MEDS: fentaNYL CITRATE 100 MCG/2 ML VL ONE (14:40)
[2024-03-07] MEDS: LIDOCAINE 2%HCL (LOCAL ANESTH.) INJ 20ML MDV ONE (14:41)
[2024-03-08 01:00] VITALS: BP 125/53; PULSE 78; RESP 18; TEMP 97.8; O2SAT 88
[2024-03-08 05:00] VITALS: BP 151/75; PULSE 88; RESP 24; TEMP 98.6; O2SAT 95
[2024-03-08 05:48] LABS: Basophils # (auto) 0.1 10 ^3/uL (0-0.2); Eosinophils # (auto) 0.1 10 ^3/uL (0-0.8); Eosinophils % (auto) 1.2 % (0.0-7.0); Hematocrit 37.4 % (36.0-46.0); Hemoglobin 12.5 g/dL (12.2-16.2); Lymphocytes # (auto) 2.1 10 ^3/uL (0.4-5.4); Lymphocytes % (auto) 30.5 % (10.0-50.0); Mean Corpuscular Hemoglobin 27.4 pg (28.0-32.0); Mean Corpuscular Hgb Conc. 33.4 g/dL (32.0-36.0); Mean Corpuscular Volume 82.2 fL (80.0-100.0); Monocytes # (auto) 0.5 10 ^3/uL (0-1.3); Monocytes % (auto) 6.7 % (0.0-12.0); Neutrophils # (auto) 4.2 10 ^3/uL (1.6-8.6); Neutrophils % (auto) 60.6 % (37.0-80.0); Nucleated Red Blood Cells % 0.1 %; Red Blood Cells 4.55 10^6/uL (4.0-5.20); Red Cell Distribution Width 15.4 % (11.8-14.3)
[2024-03-08 06:11] LABS: Alanine Aminotransferase 51 U/L (7-40); Alkaline Phosphatase 58 U/L (46-116); Anion Gap 9 (5-15); Blood Urea Nitrogen 9 mg/dL (9-23); Carbon Dioxide 24 mmol/L (20-30); Chloride 107 mmol/L (98-107); Glucose 207 mg/dL (74-106); Magnesium 1.9 mg/dL (1.6-2.6); Potassium 3.2 mmol/L (3.5-5.1); Sodium 140 mmol/L (136-145)
[2024-03-08 06:12] LABS: Albumin 4.1 g/dL (3.2-4.8); Aspartate Aminotransferase 44 U/L (13-40); Bilirubin, Total 0.5 mg/dL (0.2-1.0); Total Protein 6.4 g/dL (5.7-8.2)
[2024-03-08 07:43] VITALS: BP 171/72; PULSE 87; RESP 20; TEMP 98.7; O2SAT 95
[2024-03-08] MEDS ORDERED: HYDROcodone-ACET 5/325MG TAB PO PRN (11:15)
[2024-03-08] MEDS: SODIUM CHLORIDE 0.9% 1,000 ML IV SCH (11:15)
[2024-03-08] MEDS: POTASSIUM CHL 20 Meq TABLET PO ONE (11:38)
[2024-03-08] MEDS: LISINOPRIL 20 MG TAB PO ONE (11:42)
[2024-03-08 12:24] VITALS: BP 163/66; PULSE 94; RESP 20; TEMP 98.6; O2SAT 94
[2024-03-08] MEDS: ACETAMINOPHEN 325 MG TAB PO PRN (12:28)
[2024-03-08 16:25] VITALS: BP 134/57; PULSE 81; RESP 20; TEMP 98.7; O2SAT 95
[2024-03-08] MEDS: HYDROmorphone HCL 2 MG/ML VL/or syr IV PRN (16:39)
[2024-03-08 21:00] VITALS: BP 162/73; PULSE 84; RESP 20; TEMP 98.2; O2SAT 96
[2024-03-09 01:00] VITALS: BP 144/111; PULSE 89; RESP 18; TEMP 98.7; O2SAT 93
[2024-03-09 05:00] VITALS: BP 141/65; PULSE 80; RESP 18; TEMP 98.9; O2SAT 91
[2024-03-09 07:29] LABS: Anion Gap 9 (5-15); Calcium 8.9 mg/dL (8.7-10.4); Carbon Dioxide 23 mmol/L (20-30); Chloride 107 mmol/L (98-107); Potassium 3.4 mmol/L (3.5-5.1); Sodium 139 mmol/L (136-145)
[2024-03-09 07:35] LABS: BUN/Creatinine Ratio 13.6 (10.0-20.0); Blood Urea Nitrogen 8 mg/dL (9-23); Glucose 225 mg/dL (74-106); Magnesium 1.7 mg/dL (1.6-2.6)
[2024-03-09 08:33] VITALS: BP 158/77; PULSE 90; RESP 18; TEMP 98.2; O2SAT 95
[2024-03-09] MEDS: LISINOPRIL 20 MG TAB PO SCH (09:54)
[2024-03-09] MEDS ORDERED: CEPH500C PO (10:42)
[2024-03-09 10:53] VITALS: BP 140/72; TEMP 36.8
== END 2024-03-09 11:40 | disposition home or self-care (01) | DRG 690 ==
LOC: ER 09:47 → OVERFLOW 13:42 → EAST 17:08
PROVIDERS: ADMIT Nurse Practitioner Family; ATTEND Internal Medicine Geriatric Medicine
PROC: 0T9330Z Drainage of Right Kidney Pelvis with Drainage Device, Percutaneous Approach (ICD-10-PCS; principal; 2024-03-04)
PROC: 0T25X0Z Change Drainage Device in Kidney, External Approach (ICD-10-PCS; 2024-03-07)
DX: N13.6 Pyonephrosis (principal); E78.5 Hyperlipidemia, unspecified; I10 Essential (primary) hypertension; K80.20 Calculus of gallbladder without cholecystitis without obstruction; K82.8 Other specified diseases of gallbladder; N28.89 Other specified disorders of kidney and ureter; Z87.891 Personal history of nicotine dependence; Z79.84 Long term (current) use of oral hypoglycemic drugs; Z79.899 Other long term (current) drug therapy; Z83.3 Family history of diabetes mellitus; Z87.442 Personal history of urinary calculi; E11.65 Type 2 diabetes mellitus with hyperglycemia
CPT/HCPCS: 36415; 50432; 74176; 74425; 75984; 76775; 76942; 78226; 80048; 80053; 80061; 81001; 82962; 83735; 84443; 85025; 85610; 85730; 87086; 99152; G0378; J1815; J2250; J2405; J3490; Q9967

== ENCOUNTER 2024-03-14 08:17 | Emergency (ER) | payer OTHER, MEDICAID ==
[~2024-03-14] VITALS: Ht 154.9 cm; Wt 85.7 kg
[~2024-03-14 08:17] MED LIST changes: -CEPH250C PO; +CEPH500C PO; -GAB100C PO
[2024-03-14 08:47] LABS: Urine Bacteria None Seen /hpf (None Seen)
[2024-03-14 08:54] VITALS: PULSE 83; RESP 16; O2SAT 98
[2024-03-14 08:55] LABS: Urine Blood 2+ /uL (Negative); Urine Clarity Turbid (Clear); Urine Color Light-Yellow (Yellow); Urine Protein, UAD 1+ (Negative); Urine Urobilinogen Normal (Negative); Urine WBC 13 /hpf (0 - 5)
[2024-03-14] MEDS: SODIUM CHLORIDE 0.9% 1,000 ML IV ONE (08:58)
[2024-03-14 09:37] LABS: Basophils # (auto) 0.1 10 ^3/uL (0-0.2); Basophils % (auto) 0.8 % (0.0-2.0); Eosinophils # (auto) 0.3 10 ^3/uL (0-0.8); Eosinophils % (auto) 3.8 % (0.0-7.0); Hematocrit 41.4 % (36.0-46.0); Hemoglobin 13.8 g/dL (12.2-16.2); Lymphocytes # (auto) 2.4 10 ^3/uL (0.4-5.4); Lymphocytes % (auto) 28.6 % (10.0-50.0); Mean Corpuscular Hemoglobin 27.8 pg (28.0-32.0); Mean Corpuscular Hgb Conc. 33.4 g/dL (32.0-36.0); Mean Corpuscular Volume 83.1 fL (80.0-100.0); Monocytes # (auto) 0.5 10 ^3/uL (0-1.3); Neutrophils % (auto) 60.8 % (37.0-80.0); Nucleated Red Blood Cells % 0.1 %; Red Blood Cells 4.98 10^6/uL (4.0-5.20); Red Cell Distribution Width 15.6 % (11.8-14.3); White Blood Cell 8.2 10^3/uL (4.4-10.8)
[2024-03-14 10:35] LABS: Chloride 101 mmol/L (98-107); Potassium 3.8 mmol/L (3.5-5.1); Sodium 136 mmol/L (136-145)
[2024-03-14 10:36] LABS: Anion Gap 5 (5-15); Calcium 10.6 mg/dL (8.7-10.4); Carbon Dioxide 30 mmol/L (20-30)
[2024-03-14 10:41] LABS: Glucose 235 mg/dL (74-106)
[2024-03-14 10:42] LABS: BUN/Creatinine Ratio 15.7 (10.0-20.0); Blood Urea Nitrogen 13 mg/dL (9-23)
[2024-03-14] MEDS: cefTRIAXone 1GM/50ML D5W 50 ML IV ONE (12:14)
[2024-03-14] MEDS ORDERED: ONDANSETRON HCL 4 MG/2 ML VIAL IV PRN (14:45)
[2024-03-14] MEDS ORDERED: DEXTROSE (50%) 50ML SYRG IV PRN (14:45)
[2024-03-14 16:00] VITALS: BP 147/66; PULSE 84; RESP 20; TEMP 98.1; O2SAT 96
[2024-03-14] MEDS ORDERED: CIPR-273 PO (16:38)
[2024-03-14] MEDS ORDERED: InsuLIN REG 1unit/0.01ml Soln (100units/ml) SC SCH (17:00)
[2024-03-14] MEDS ORDERED: ACCU-CHEK COMFORT CURVE STRIP VI SCH (17:00)
[2024-03-14] MEDS ORDERED: ATORVASTATIN 20 MG TAB PO SCH (22:00)
[2024-03-15] MEDS ORDERED: cefTRIAXone 1GM/50ML D5W 50 ML IV SCH (09:00)
[2024-03-15] MEDS ORDERED: GABAPENTIN 300 MG CAP PO SCH (10:00)
[2024-03-15] MEDS ORDERED: LISINOPRIL 20 MG TAB PO SCH (10:00)
[2024-03-15] MEDS ORDERED: ENOXAPARIN SOD 40 MG/0.4 ML SYRINGE SC SCH (10:00)
[2024-03-15] MEDS ORDERED: hydroCHLOROthiazide 25 MG TAB PO SCH (10:00)
== END 2024-03-14 17:10 | disposition home or self-care (01) ==
LOC: ER 08:17 → UNDOADMIN 14:37 → OVERFLOW 14:37 → UNDODISIN 17:10
DX: A41.9 Sepsis, unspecified organism (principal); N39.0 Urinary tract infection, site not specified; E11.65 Type 2 diabetes mellitus with hyperglycemia; Z79.899 Other long term (current) drug therapy; Z98.890 Other specified postprocedural states; Z88.8 Allergy status to other drugs, medicaments and biological substances
CPT/HCPCS: 36415; 74176; 80048; 81001; 85025; 87086; 96361; 96365; 99285; J0696

== ENCOUNTER 2024-04-03 15:06 | Emergency (ER) | payer OTHER, MEDICAID ==
[~2024-04-03] VITALS: Ht 157.5 cm; Wt 86.5 kg
[~2024-04-03 15:06] MED LIST changes: +CIPR-273 PO
[2024-04-03 21:25] VITALS: BP 142/71; PULSE 99; RESP 18; TEMP 98.5; O2SAT 95
== END 2024-04-03 21:27 | disposition home or self-care (01) ==
LOC: ER 15:06
DX: R10.9 Unspecified abdominal pain (principal); I10 Essential (primary) hypertension; E11.9 Type 2 diabetes mellitus without complications; E78.5 Hyperlipidemia, unspecified; Z96.89 Presence of other specified functional implants; Z98.890 Other specified postprocedural states; Z87.891 Personal history of nicotine dependence; Z88.8 Allergy status to other drugs, medicaments and biological substances; Z79.899 Other long term (current) drug therapy
CPT/HCPCS: 74176

== ENCOUNTER 2024-05-10 10:06 | Inpatient (IN) | payer OTHER, MEDICAID ==
[~2024-05-10] VITALS: Ht 167.6 cm; Wt 86.0 kg
[2024-05-10] MEDS: SODIUM CHLORIDE 0.9% 1,000 ML IV ONE (10:57)
[2024-05-10] MEDS: ONDANSETRON HCL 4 MG/2 ML VIAL IV ONE (11:00)
[2024-05-10] MEDS: MORPHINE SULFATE 4 MG/ML SYR/VIAL IV ONE (11:01)
[2024-05-10 11:03] LABS: Basophils # (auto) 0.1 10 ^3/uL (0-0.2); Basophils % (auto) 1.5 % (0.0-2.0); Eosinophils # (auto) 0.2 10 ^3/uL (0-0.8); Eosinophils % (auto) 2.2 % (0.0-7.0); Hematocrit 38.3 % (36.0-46.0); Hemoglobin 12.8 g/dL (12.2-16.2); Lymphocytes # (auto) 2.3 10 ^3/uL (0.4-5.4); Lymphocytes % (auto) 29.1 % (10.0-50.0); Mean Corpuscular Hemoglobin 27.4 pg (28.0-32.0); Mean Corpuscular Hgb Conc. 33.5 g/dL (32.0-36.0); Monocytes # (auto) 0.4 10 ^3/uL (0-1.3); Monocytes % (auto) 4.8 % (0.0-12.0); Neutrophils # (auto) 4.9 10 ^3/uL (1.6-8.6); Neutrophils % (auto) 62.4 % (37.0-80.0); Platelet Count (auto) 192 10^3/uL (140-450); Red Blood Cells 4.67 10^6/uL (4.0-5.20); Red Cell Distribution Width 15.4 % (11.8-14.3); White Blood Cell 7.9 10^3/uL (4.4-10.8)
[2024-05-10 11:11] LABS: Chloride 104 mmol/L (98-107); Potassium 3.8 mmol/L (3.5-5.1); Sodium 138 mmol/L (136-145)
[2024-05-10 11:12] LABS: Anion Gap 9 (5-15); Calcium 10.2 mg/dL (8.7-10.4); Carbon Dioxide 25 mmol/L (20-31)
[2024-05-10 11:13] LABS: Urine Bacteria MANY /hpf (None Seen); Urine Blood 3+ /uL (Negative); Urine Clarity Ex.Turbid (Clear); Urine Color Light-Brown (Yellow); Urine Mucus FEW (None Seen); Urine Protein, UAD 2+ (Negative); Urine Specific Gravity 1.018 (1.001-1.035); Urine Urobilinogen Normal (Negative); Urine WBC 542 /hpf (0 - 5); Urine pH 5.5 (5.0-9.0)
[2024-05-10 11:17] LABS: BUN/Creatinine Ratio 15.7 (10.0-20.0); Blood Urea Nitrogen 14 mg/dL (9-23); Glucose 251 mg/dL (74-106)
[2024-05-10] MEDS: CEFEPIME 2GM/50ML NS 50 ML IV ONE (12:09)
[2024-05-10] MEDS ORDERED: IOHEXOL 300 MG/ML 100ML BOTTLE IJ ONE (12:16)
[2024-05-10] MEDS ORDERED: DOCUSATE SOD 100 MG CAP PO PRN (16:00)
[2024-05-10] MEDS ORDERED: NITROGLYCERIN 0.4 MG SL TAB SL PRN (16:00)
[2024-05-10 17:45] VITALS: BP 131/61; PULSE 90; RESP 19; TEMP 98; O2SAT 94; O2SAT 98
[2024-05-10] MEDS: SODIUM CHLORIDE 0.9% 1,000 ML IV SCH (18:42)
[2024-05-10] MEDS: levoFLOXacin 500MG 100 ML IV ONE (18:42)
[2024-05-10] MEDS: ONDANSETRON HCL 4 MG/2 ML VIAL IV PRN (18:48)
[2024-05-10] MEDS: MORPHINE SULFATE INJ 2 MG/ml SYRG IV PRN (18:49)
[2024-05-10] MEDS: FLUCONAZOLE 200MG/100ML 100 ML IV ONE (19:52)
[2024-05-10 20:00] VITALS: PULSE 82; RESP 18; O2SAT 93
[2024-05-10 21:00] VITALS: BP 135/67; PULSE 89; RESP 18; TEMP 97.9; O2SAT 92
[2024-05-11] VITALS (7 sets, daily range): BP systolic 125–154; BP diastolic 52–73; PULSE 75–89; RESP 16–18; TEMP 97.6–98.4; O2SAT 93–96
[2024-05-11 05:38] LABS: Basophils # (auto) 0 10 ^3/uL (0-0.2); Basophils % (auto) 0.9 % (0.0-2.0); Eosinophils # (auto) 0.1 10 ^3/uL (0-0.8); Eosinophils % (auto) 2.7 % (0.0-7.0); Hematocrit 32.4 % (36.0-46.0); Hemoglobin 10.8 g/dL (12.2-16.2); Lymphocytes # (auto) 1.7 10 ^3/uL (0.4-5.4); Lymphocytes % (auto) 31.9 % (10.0-50.0); Mean Corpuscular Hemoglobin 27.8 pg (28.0-32.0); Mean Corpuscular Hgb Conc. 33.4 g/dL (32.0-36.0); Mean Corpuscular Volume 83.1 fL (80.0-100.0); Monocytes # (auto) 0.3 10 ^3/uL (0-1.3); Monocytes % (auto) 4.7 % (0.0-12.0); Neutrophils # (auto) 3.2 10 ^3/uL (1.6-8.6); Neutrophils % (auto) 59.8 % (37.0-80.0); Nucleated Red Blood Cells % 0.1 %; Platelet Count (auto) 138 10^3/uL (140-450); Red Blood Cells 3.89 10^6/uL (4.0-5.20); Red Cell Distribution Width 15.5 % (11.8-14.3); White Blood Cell 5.4 10^3/uL (4.4-10.8)
[2024-05-11 05:49] LABS: Alanine Aminotransferase 70 U/L (7-40); Albumin 3.9 g/dL (3.2-4.8); Alkaline Phosphatase 67 U/L (46-116); Anion Gap 8 (5-15); Aspartate Aminotransferase 62 U/L (13-40); BUN/Creatinine Ratio 18.7 (10.0-20.0); Blood Urea Nitrogen 14 mg/dL (9-23); Calcium 9.6 mg/dL (8.7-10.4); Carbon Dioxide 25 mmol/L (20-31); Chloride 106 mmol/L (98-107); Glucose 200 mg/dL (74-106); Potassium 3.9 mmol/L (3.5-5.1); Sodium 139 mmol/L (136-145)
[2024-05-11 05:50] LABS: Bilirubin, Total 0.4 mg/dL (0.2-1.0); Total Protein 6.6 g/dL (5.7-8.2)
[2024-05-11] MEDS: FLUCONAZOLE 200MG/100ML 100 ML IV SCH (08:50)
[2024-05-11] MEDS ORDERED: DEXTROSE (50%) 50ML SYRG IV PRN (09:15)
[2024-05-11] MEDS: levoFLOXacin 500MG 100 ML IV SCH (09:40)
[2024-05-11] MEDS: ACCU-CHEK COMFORT CURVE STRIP VI SCH ×2 (09:44→11:38)
[2024-05-11] MEDS: ACCU-CHEK COMFORT CURVE STRIP VI ONE (10:00)
[2024-05-11] MEDS: InsuLIN REG 1unit/0.01ml Soln (100units/ml) SC ONE (10:24)
[2024-05-11] MEDS ORDERED: LISI40TA16 PO (10:33)
[2024-05-11] MEDS ORDERED: GABA-1250 PO (10:36)
[2024-05-11] MEDS: cefTRIAXone 1GM/50ML D5W 50 ML IV ONE (11:11)
[2024-05-11] MEDS: InsuLIN REG 1unit/0.01ml Soln (100units/ml) SC SCH (12:14)
[2024-05-11] MEDS: TAMSULOSIN HYDROCHLORIDE 0.4 MG CAP PO SCH (17:38)
[2024-05-12] VITALS (7 sets, daily range): BP systolic 134–160; BP diastolic 60–74; PULSE 74–85; RESP 17–20; TEMP 97.6–98.3; O2SAT 95–100
[2024-05-12 06:42] LABS: Basophils # (auto) 0 10 ^3/uL (0-0.2); Basophils % (auto) 1.1 % (0.0-2.0); Eosinophils # (auto) 0.1 10 ^3/uL (0-0.8); Eosinophils % (auto) 2.3 % (0.0-7.0); Hematocrit 32.7 % (36.0-46.0); Hemoglobin 10.9 g/dL (12.2-16.2); Lymphocytes # (auto) 1.5 10 ^3/uL (0.4-5.4); Lymphocytes % (auto) 34.9 % (10.0-50.0); Mean Corpuscular Hemoglobin 27.7 pg (28.0-32.0); Mean Corpuscular Hgb Conc. 33.5 g/dL (32.0-36.0); Mean Corpuscular Volume 82.7 fL (80.0-100.0); Monocytes # (auto) 0.2 10 ^3/uL (0-1.3); Monocytes % (auto) 5.6 % (0.0-12.0); Neutrophils # (auto) 2.4 10 ^3/uL (1.6-8.6); Neutrophils % (auto) 56.1 % (37.0-80.0); Nucleated Red Blood Cells % 0.1 %; Platelet Count (auto) 137 10^3/uL (140-450); Red Blood Cells 3.96 10^6/uL (4.0-5.20); Red Cell Distribution Width 15.5 % (11.8-14.3); White Blood Cell 4.2 10^3/uL (4.4-10.8)
[2024-05-12] MEDS: cefTRIAXone 1GM/50ML D5W 50 ML IV SCH (08:59)
[2024-05-12] MEDS: LISINOPRIL 20 MG TAB PO SCH (09:54)
[2024-05-12] MEDS: hydrALAZINE HCL 20 MG/ML VL IV PRN (14:13)
[2024-05-12 16:06] LABS: INR 1.07 (0.9-1.15); Partial Thromboplastin Time 29.6 SEC (24.5-34.5); Prothrombin Time 11.3 sec (9.3-11.8)
[2024-05-12] MEDS: SODIUM CHLORIDE 0.9% 1,000 ML IV SCH (16:23)
[2024-05-12] MEDS: LISINOPRIL 20 MG TAB PO ONE (17:22)
[2024-05-12] MEDS: GABAPENTIN 300 MG CAP PO SCH (19:44)
[2024-05-13 01:00] VITALS: BP 144/60; PULSE 88; RESP 20; TEMP 98.2; O2SAT 96
[2024-05-13 05:00] VITALS: BP 142/64; PULSE 77; RESP 18; TEMP 98.5; O2SAT 94
[2024-05-13 09:00] VITALS: BP 123/72; PULSE 64; RESP 17; TEMP 98.3; O2SAT 95
[2024-05-13] MEDS: LISINOPRIL 20 MG TAB PO SCH (09:27)
[2024-05-13 13:00] VITALS: BP 155/65; PULSE 86; RESP 17; TEMP 98.2; O2SAT 97
[2024-05-13 17:00] VITALS: BP 157/70; PULSE 67; RESP 16; TEMP 98.4; O2SAT 94
[2024-05-13 21:05] VITALS: BP 162/70; PULSE 79; RESP 20; TEMP 98; O2SAT 94
[2024-05-14] VITALS (7 sets, daily range): BP systolic 120–155; BP diastolic 57–86; PULSE 77–94; RESP 17–22; TEMP 97.9–99.1; O2SAT 91–96
[2024-05-15 05:00] VITALS: BP 160/76; PULSE 83; RESP 18; TEMP 97.9; O2SAT 97
[2024-05-15 07:04] LABS: Alanine Aminotransferase 58 U/L (7-40); Albumin 4.1 g/dL (3.2-4.8); Alkaline Phosphatase 73 U/L (46-116); Anion Gap 8 (5-15); Aspartate Aminotransferase 44 U/L (13-40); BUN/Creatinine Ratio 18.3 (10.0-20.0); Blood Urea Nitrogen 13 mg/dL (9-23); Calcium 9.6 mg/dL (8.7-10.4); Carbon Dioxide 22 mmol/L (20-31); Chloride 109 mmol/L (98-107); Glucose 290 mg/dL (74-106); Magnesium 1.9 mg/dL (1.6-2.6); Potassium 3.6 mmol/L (3.5-5.1); Sodium 139 mmol/L (136-145)
[2024-05-15 07:05] LABS: Bilirubin, Total 0.4 mg/dL (0.2-1.0); Total Protein 6.9 g/dL (5.7-8.2)
[2024-05-15 07:09] LABS: Basophils # (auto) 0.1 10 ^3/uL (0-0.2); Eosinophils # (auto) 0.1 10 ^3/uL (0-0.8); Eosinophils % (auto) 2.9 % (0.0-7.0); Hematocrit 34.2 % (36.0-46.0); Hemoglobin 11.7 g/dL (12.2-16.2); Lymphocytes # (auto) 1.7 10 ^3/uL (0.4-5.4); Lymphocytes % (auto) 33.7 % (10.0-50.0); Mean Corpuscular Hemoglobin 28.2 pg (28.0-32.0); Mean Corpuscular Hgb Conc. 34.3 g/dL (32.0-36.0); Mean Corpuscular Volume 82.3 fL (80.0-100.0); Monocytes # (auto) 0.3 10 ^3/uL (0-1.3); Monocytes % (auto) 5.3 % (0.0-12.0); Neutrophils # (auto) 2.8 10 ^3/uL (1.6-8.6); Neutrophils % (auto) 57.1 % (37.0-80.0); Platelet Count (auto) 165 10^3/uL (140-450); Red Blood Cells 4.15 10^6/uL (4.0-5.20); Red Cell Distribution Width 15.4 % (11.8-14.3)
[2024-05-15 08:05] VITALS: RESP 17
[2024-05-15 08:25] VITALS: BP 129/54; PULSE 41; RESP 21; TEMP 98.7; O2SAT 98
[2024-05-15] MEDS ORDERED: KETOROLAC TROMETH 30 MG/ML 1ML VIAL ONE (10:53)
[2024-05-15] MEDS ORDERED: GLYCOPYRROLATE 0.2 MG/ML 1ML VIAL ONE (10:53)
[2024-05-15] MEDS ORDERED: PROPOFOL 10 MG/ML 20 ML IV ONE (10:53)
[2024-05-15] MEDS ORDERED: DexAMETHasone SOD PHOS 10MG/1ML VIAL INJ ONE (10:53)
[2024-05-15] MEDS ORDERED: LIDOCAINE 2% (LOCAL ANESTH.) PF 5ml SDV ONE (10:53)
[2024-05-15] MEDS ORDERED: KETAMINE 50mg/ML 1ml syringe ONE (10:54)
[2024-05-15] MEDS ORDERED: fentaNYL CITRATE 100 MCG/2 ML VL ONE (10:54)
[2024-05-15] MEDS ORDERED: levoFLOXacin 500MG 100 ML IV ONE (11:03)
[2024-05-15] MEDS ORDERED: ROCURONIUM 10MG/ML 10ML VIAL IV ONE (11:11)
[2024-05-15] MEDS ORDERED: SUGAMMADEX 200mg/2ml Vial (100MG/ML) IV ONE (11:11)
[2024-05-15] MEDS: IOHEXOL 300 MG/ML 100ML BOTTLE IJ ONE (12:19)
[2024-05-15] MEDS ORDERED: ESMOLOL HCL 10 ML IV ONE (13:37)
[2024-05-15] MEDS ORDERED: ONDANSETRON HCL 4 MG/2 ML VIAL IV PRN (14:00)
[2024-05-15] MEDS ORDERED: fentaNYL CITRATE 100 MCG/2 ML VL IV PRN (14:00)
[2024-05-15] MEDS ORDERED: HYDROmorphone HCL 2 MG/ML VL/or syr IV PRN (14:00)
[2024-05-15] MEDS ORDERED: FLUMAZENIL 0.1 MG/ML INJ 10ML MDV IV PRN (14:00)
[2024-05-15] MEDS ORDERED: NALOXONE HCL 0.4 MG/ML VIAL IV PRN (14:00)
[2024-05-15] MEDS ORDERED: oxyCODONE HCL 5MG TAB PO PRN (14:00)
[2024-05-15] MEDS ORDERED: ePHEDrine SULFATE 50 MG/ML AMP IV PRN (14:00)
[2024-05-15] MEDS ORDERED: hydrALAZINE HCL 20 MG/ML VL IV PRN (14:00)
[2024-05-15] MEDS: ONDANSETRON HCL 4 MG/2 ML VIAL ONE (14:04)
[2024-05-15 17:00] VITALS: BP 151/91; PULSE 94; RESP 20; TEMP 98.4; O2SAT 92
[2024-05-15 21:00] VITALS: BP 151/73; PULSE 99; RESP 19; TEMP 98.4; O2SAT 91
[2024-05-16 01:00] VITALS: BP 144/66; PULSE 91; RESP 19; TEMP 98.2; O2SAT 93
[2024-05-16 05:00] VITALS: BP 139/71; PULSE 82; RESP 17; TEMP 98.4; O2SAT 91
[2024-05-16 07:00] LABS: Anion Gap 9 (5-15); Carbon Dioxide 22 mmol/L (20-31); Chloride 105 mmol/L (98-107); Potassium 4.2 mmol/L (3.5-5.1); Sodium 136 mmol/L (136-145)
[2024-05-16 07:02] LABS: Calcium 9.6 mg/dL (8.7-10.4)
[2024-05-16 07:06] LABS: BUN/Creatinine Ratio 19.2 (10.0-20.0); Blood Urea Nitrogen 23 mg/dL (9-23); Glucose 389 mg/dL (74-106)
[2024-05-16 08:10] VITALS: BP 147/68; PULSE 84; RESP 20; TEMP 98.4; O2SAT 94
[2024-05-16] MEDS ORDERED: CIPR-273 PO (09:03)
== END 2024-05-16 11:49 | disposition home or self-care (01) | DRG 660 ==
LOC: ER 10:06 → OVERFLOW 15:58 → CENTRAL 17:25
PROVIDERS: ADMIT Nurse Practitioner Family; ATTEND Internal Medicine Geriatric Medicine
PROC: BT1D1ZZ Fluoroscopy of Right Kidney, Ureter and Bladder using Low Osmolar Contrast (ICD-10-PCS; 2024-05-15)
PROC: 0TC68ZZ Extirpation of Matter from Right Ureter, Via Natural or Artificial Opening Endoscopic (ICD-10-PCS; 2024-05-15)
PROC: 0TP5X0Z Removal of Drainage Device from Kidney, External Approach (ICD-10-PCS; 2024-05-15)
PROC: 0T768DZ Dilation of Right Ureter with Intraluminal Device, Via Natural or Artificial Opening Endoscopic (ICD-10-PCS; principal; 2024-05-15 11:45)
DX: N99.522 Malfunction of incontinent external stoma of urinary tract (principal); N13.6 Pyonephrosis; R71.0 Precipitous drop in hematocrit; E11.65 Type 2 diabetes mellitus with hyperglycemia; E78.5 Hyperlipidemia, unspecified; I10 Essential (primary) hypertension; K80.20 Calculus of gallbladder without cholecystitis without obstruction; Z88.6 Allergy status to analgesic agent; Z79.899 Other long term (current) drug therapy; Z79.84 Long term (current) use of oral hypoglycemic drugs; Z87.891 Personal history of nicotine dependence; Z88.5 Allergy status to narcotic agent; Z79.2 Long term (current) use of antibiotics; Z79.4 Long term (current) use of insulin
CPT/HCPCS: 36415; 74018; 74177; 76000; 80048; 80053; 81001; 82962; 83735; 85025; 85610; 85730; 87086; 96365; 96375; 99291; G0378; J0692; J1100; J1450; J1815; J1885; J1956; J2003; J2405; J2704

== ENCOUNTER 2024-12-23 15:29 | Inpatient (IN) | payer OTHER, MEDICAID ==
[~2024-12-23] VITALS: Ht 157.5 cm; Wt 91.0 kg
[~2024-12-23 15:29] MED LIST changes: -CEPH500C PO; +LISI40TA16 PO
[2024-12-23] MEDS: TAMSULOSIN HYDROCHLORIDE 0.4 MG CAP PO ONE ×2 (15:45→17:25)
[2024-12-23] MEDS: SODIUM CHLORIDE 0.9% 1,000 ML IV ONE (15:45)
[2024-12-23] MEDS: HYDROcodone-ACET 5/325MG TAB PO ONE (15:45)
--- NOTE | 2024-12-23 15:47 | ED.PDOC ---
GI ASSESSMENT HPI Comments HPI: Poor Historian. 69-year-old female presents to emergency department for right lower quadrant pain. Patient states that the pain started yesterday and resolved and she thinks she may have passed a kidney stone at that time. The pain recurred again today. Pain is now constant in the right lower quadrant area without any other associated symptoms. No alleviating or precipitating factors. Patient has history of kidney stones. Patient is allergic to hydrocodone. Past Medical History: Kidney stones Past Surgical History: Back Surgery Vitals: temperature of 98.2F, pulse of 88, respiratory rate of 16, blood pressure of 161/84, SpO2 of 92%RA REVIEW OF SYSTEMS: CONSTITUTIONAL: Denies acute: fever, diaphoresis, chills, generalized weakness. HEAD: Denies acute: headache, photophobia Eyes: Denies acute: Double vision, vision loss, eye pain, eye discharge. EARS: Denies acute: tinnitus, hearing loss, ear discharge, ear pain, THROAT: Denies acute: sore throat, swelling, difficulty swallowing , pain with swallowing, change in voice. NECK: Denies acute: neck pain, neck swelling, stiff neck. HEART: Denies acute : chest pain, palpitations, LUNGS: Denies acute: SOB, wheezing, cough, hemoptysis ABDOMEN: Denies acute: Nausea, Vomiting, diarrhea, melena , hematemesis, hematochezia SKIN: Denies acute: rash, redness, lesions, itchiness. EXTREMITIES: Denies acute: calf pain, numbness, tingling, weakness, denies pain in extremity. Denies acute: Low back pain. Neuro: Denies acute: focal neurological deficit, motor or sensory focal neurological deficit, tremors, seizure like activity, confusion, dizziness, change in mental status, loss of bowel or bladder function, cauda equina like symptoms. : Denies acute: dysuria, hematuria, increase in urinary frequency. PSYCH: Denies acute: hallucination, suicidal ideation, homicidal ideation. FEMALE: Denies acute: abnormal vaginal bleeding, foul odor, unusual discharge. PHYSICAL EXAM: General: ----[id number]----acute distress, awake and alert. Head: normocephalic, atraumatic. Neck: supple, trachea is midline, no swelling. Throat: Normal phonation. Eyes:, no erythema, no purulent discharge, no proptosis, no icterus. Heart: regular rate, regular rhythm, no significant murmur appreciated. Lungs: no apparent respiratory distress, Able to speak in full sentences. No wheezing, no rhonchi, no crackles. No stridors Clear to auscultation bilaterally. Abdomen: Right lower quadrant tender to palpation, non distended, soft, no guarding, no rebound, + bowel sounds. Neuro: Awake, Alert, oriented to name, self, situation, follows commands GCS=15. Speech is normal. Skin: no petechia, no purpura, no cyanosis, non-pale, not jaundice. Lower extremities: --no - Pitting edema no deformity, no focal swelling, no calf TTP. Makes eye contact. moves all four extremities. Face: no apparent facial droop. Right CVA tenderness to percussion Ambulating in the ED independently. ED COURSE: Chief Complaint: Abdominal Pain Time Seen by MD: 15:33 Primary Care Provider: ASTRID Reviewed Notes: Nurses Notes, Allergies Allergies: Coded Allergies: Acetaminophen (Verified Allergy, Mild, VOMITING, 03/08/24) Hydrocodone (Verified Allergy, Mild, VOMITING, 03/08/24) Home Meds Active Scripts Ciprofloxacin Hcl (Cipro) 250 Mg Tab, 250 MG PO BID for 7 Days, #14 TAB Prov:BHAVNA SEARS MD 05/16/24 Tamsulosin Hcl (Flomax) 0.4 Mg Cap, 0.4 MG PO QPM for 14 Days, #14 CAP Prov:JV TEIXEIRA MD 12/20/23 Reported Medications Gabapentin (Gabapentin) 300 Mg Cap, 300 MG PO HS for 30 Days, MG 05/11/24 Lisinopril (Lisinopril) 40 Mg Tab, 40 MG PO DAILY for 30 Days, MG 05/11/24 Ondansetron Odt 4MG Tab (ZOFRAN PO) 4 Mg Tb, 1 TAB PO DAILY PRN for NAUSEA / VOMITING for 30 Days ODT TAB-DISSOLVE IN MOUTH, THEN SWALLOW 03/04/24 Gabapentin (Gabapentin) 300 Mg Cap, 1 CAP PO QPM for 90 Days, #90 5 Refills 03/04/24 Omeprazole (Omeprazole Dr) 20 Mg Cap, 1 CAP PO QAM 12/18/23 Lisinopril (Lisinopril) 20 Mg Tab, 1 TAB PO DAILY 12/18/23 Empagliflozin (Jardiance) 25 Mg Tab, 1 TAB PO DAILY 12/18/23 Insulin Glargine (Basaglar Kwikpen) 100 Unit/Ml Inj, 48 UNIT SC BID 12/18/23 Glimepiride (Glimepiride) 4 Mg Tab, 2 TAB PO DAILY 12/18/23 Metformin Hydrochloride (Metformin Hcl) 850 Mg Tab, 1 TAB PO BID 12/18/23 Fenofibrate (FENOFIBRATE) 145 Mg Tab, 1 TAB PO DAILY 12/17/23 Rosuvastatin Calcium (Rosuvastatin Calcium) 40 Mg Tab, 1 TAB PO DAILY 12/17/23 Hctz (Hydrochlorothiazide) 25 Mg Tab, 1 TAB PO DAILY 12/17/23 Information Source: Patient Was a procedure done? Was a procedure done?: No GI differential Dx Differential Diagnosis: Other (DDX include Diverticulitis, colitis, gastroenteritis, acute abdomen, SBO, enteritis, constipation, volvulus, appendicitis, Gallbladder disease, choledocolithiasis, ascending cholangitis, pancreatitis, intraAbdominal mass/neoplasm, hepatitis, UTI, pylonephritis, kidney stone, aneurysm, dissection, Inflammatory bowel disease, gastroparesis, ischemic bowel, ovarian torsion, ovarian cyst/mass, tubo-ovarian abscess, ) X-Ray, Labs, Meds, VS Vital Signs Date Time Temp Pulse Resp B/P (MAP) Pulse Ox O2 Delivery O2 Flow Rate FiO2 12/23/24 17:21 161/84 12/23/24 17:14 98.2 88 16 161/84 (109) 92 98.2 12/23/24 15:58 97.3 95 16 197/83 (121) 96 97.3 Lab Test 12/23/24 17:08 12/23/24 16:13 12/23/24 15:40 Range/Units Troponin I High Sensitivity 4 5 </=34 ng/L White Blood Count 8.1 4.4-10.8 10^3/uL Red Blood Count 4.75 4.0-5.20 10^6/uL Hemoglobin 13.2 12.2-16.2 g/dL Hematocrit 39.4 36.0-46.0 % Mean Corpuscular Volume 82.9 80.0-100.0 fL Mean Corpuscular Hemoglobin 27.9 L 28.0-32.0 pg Mean Corpuscular Hemoglobin Concent 33.6 32.0-36.0 g/dL Red Cell Distribution Width 15.0 H 11.8-14.3 % Platelet Count 141 140-450 10^3/uL Mean Platelet Volume 9.1 6.9-10.8 fL Neutrophils (%) (Auto) 65.0 37.0-80.0 % Lymphocytes (%) (Auto) 27.4 10.0-50.0 % Monocytes (%) (Auto) 5.2 0.0-12.0 % Eosinophils (%) (Auto) 1.5 0.0-7.0 % Basophils (%) (Auto) 0.9 0.0-2.0 % Neutrophils # (Auto) 5.3 1.6-8.6 10 ^3/uL Lymphocytes # (Auto) 2.2 0.4-5.4 10 ^3/uL Monocytes # (Auto) 0.4 0-1.3 10 ^3/uL Eosinophils # (Auto) 0.1 0-0.8 10 ^3/uL Basophils # (Auto) 0.1 0-0.2 10 ^3/uL Nucleated Red Blood Cells 0.1 % Sodium Level 140 136-145 mmol/L Potassium Level 4.0 3.5-5.1 mmol/L Chloride Level 104 98-107 mmol/L Carbon Dioxide Level 25 20-31 mmol/L Anion Gap 11 5-15 Blood Urea Nitrogen 24 H 9-23 mg/dL Creatinine 0.92 0.550-1.02 mg/dL Glomerular Filtration Rate Calc 67 >90 mL/min BUN/Creatinine Ratio 26.1 H 10.0-20.0 Serum Glucose 160 H 74-106 mg/dL Lactic Acid Level 1.8 0.4-2.0 mmol/L Calcium Level 9.7 8.7-10.4 mg/dL Total Bilirubin 0.3 0.2-1.0 mg/dL Aspartate Amino Transferase (AST) 57 H 13-40 U/L Alanine Aminotransferase (ALT) 84 H 7-40 U/L Alkaline Phosphatase 78 46-116 U/L Total Protein 7.7 5.7-8.2 g/dL Albumin 4.9 H 3.2-4.8 g/dL Lipase 51 12-53 U/L Urine Color Colorless Yellow Urine Clarity Turbid H Clear Urine pH 5.0 5.0-9.0 Urine Specific [place] 1.015 1.001-1.035 Urine Protein 1+ H Negative Urine Ketones Negative Negative Urine Blood 3+ H Negative /uL Urine Nitrite Negative Negative Urine Bilirubin Negative Negative Urine Urobilinogen Normal Negative mg/dL Urine Leukocyte Esterase Negative Negative /uL Urine RBC 239 0 - 4 /hpf Urine Microscopic WBC 6 H 0-5 /HPF Urine Squamous Epithelial Cells Mod <5 /hpf Urine Uric Acid Crystals Few None Seen /hpf Urine Bacteria Few H None Seen /hpf Urine Mucus Few None Seen Urine Glucose Normal Normal mg/dL Current Medications Medications (Trade) Dose Ordered Sig/Jose Route Start Time Stop Time Status Last Admin Tamsulosin HCl (Flomax) 0.4 mg ONCE ONCE PO 12/23/24 15:45 12/23/24 15:46 DC 12/23/24 15:45 Fentanyl Citrate 100 mcg ONCE ONCE IV 12/23/24 15:45 12/23/24 15:46 DC 12/23/24 17:21 Ceftriaxone Sodium 50 ml @ 100 mls/hr ONCE ONCE IV 12/23/24 17:00 12/23/24 17:29 DC 12/23/24 17:00 Sodium Chloride 1,000 ml @ 120 mls/hr Q8H20M IV 12/23/24 18:00 12/23/24 18:00 Tamsulosin HCl (Flomax) 0.4 mg QPM PO 12/23/24 18:00 12/23/24 23:24 [place] [address] Ph: [phone] DIAGNOSTIC IMAGING Diagnostic Imaging Report : [id number] Signed PATIENT: BRUCE PARKER ACCT: [id number] UNIT: [id number] : 1955 LOC: ER ROOM / BED: / AGE / SEX: 69 / F ADM STATUS: REG ER SERVICE [id number] ORDERING PHYSICIAN: SAEID CARTER DO PROCEDURE(s): ABPL - CT AB PEL WO CON-NO ORAL OR IV REASON: abd pain ORDER NUMBER(s): [id number], ACCESSION NUMBER(s): [id number] Procedure: CT CT AB PEL WO CON-NO ORAL OR IV 12/23/2024 03:43 PM Indication: abd pain Comparison Study: CT CT AB PEL WO CON-NO ORAL OR IV on DOS: 04/03/24, CT CT AB PEL WO CON-NO ORAL OR IV on DOS: 03/14/24, CT CT AB PEL WO CON-NO ORAL OR IV on DOS: 03/06/24 Technique: Axial images were obtained and reformatted in coronal and sagittal planes. All CT scans at this medical facility are performed using dose modulation techniques as appropriate to a performed exam including the following: Automated exposure control was utilized; adjustment of the MA and/or KV according to patient size; and use of iterative reconstruction technique. CT Dose: CTDI volume is 21.52 mGy. Dose-length product is 1270.96 mGy*cm FINDINGS: Lower Chest: Unremarkable. Hepatobiliary: Hepatomegaly and hepatic steatosis with areas of focal fatty sparing. Cholelithiasis without CT evidence of cholecystitis.. Spleen: Mild splenomegaly Pancreas: Unremarkable. Adrenal Glands: Unremarkable. tract: The kidneys are normal in size bilaterally . Mild right hydronephrosis and hydroureter due to a 6 mm obstructing stone in distal ureter close to the UVJ. A 4 mm stone is seen in the bladder lumen. A 5 mm left renal stone is seen. No bladder wall thickening. Several subcentimeter nonobstructing bilateral renal calculi are seen measuring up to 5 mm. The previously seen large right renal pelvis calculi are no longer visualized. The previously seen right nephrostomy tube is removed. GI tract: The stomach is grossly normal in appearance. No evidence of small bowel obstruction. The large bowel is unremarkable. The appendix is normal. Lymphatics: No mesenteric, retroperitoneal or periportal lymphadenopathy. Vasculature: The abdominal aorta is normal in caliber. Diffuse calcified plaque formation is noted. Pelvic Organs: Retroverted uterus. An IUD is noted in the good fundal position. No adnexal lesion Bones/soft tissues: No acute abnormality. Degenerative changes of the lumbar spine noted. Stable heterogeneity of the lumbar vertebrae likely due to underlying benign lesion such as hemangiomas Small fat-containing umbilical hernia. Other: None. IMPRESSION: 1. Mild right hydronephrosis and hydroureter due to a 6 mm obstructing stone in distal ureter adjacent to the UVJ. ATED BY: MAGUE WARD MD DICTATED DATE/TIME: 12/23/241617 SIGNED BY: MAGUE WARD MD SIGNED DATE/TIME: 12/23/241617 CC: Time of 1ST Reevaluation: 15:33 Reevaluation 1ST: Unchanged Time of 2ND Reevaluation: 02:17 Reevaluation 2ND: Improved Patient Education/Counseling: Diagnosis, Treatment Family Education/Counseling: No Family Present Comments Patient presented with the above HPI.---right lower quadrant abdominal pain---workup was initiated. patient was found with the above mentioned diagnosis. the following medications were ordered: please refer to order lists of meds and tests obtained by myself Dr. Carter. Patient ED course and VS have been stabilized. Patient has been reassessed in the ED and remained in a stable condition. Pertinent incidental findings were discussed with the patient and/or family. Patient/family voices understanding and is agreeable with plan. Patient has been observed in the ED adequate length of time to insure improvement/stability. Escalation of care considered: Consideration of escalation to observation or admission Patient was found with obstructing kidney stone and UTI. Antibiotics and fluids were initiated. Patient was ADMITTED to the medicine team for further evaluation and treatment of their presentation. All the reports of any imaging studies that were ordered by myself were reviewed by myself. Departure 1 Departure Time of Disposition: 16:58 Impression: Primary Impression: Urinary tract obstruction due to kidney stone Additional Impression: UTI (urinary tract infection) Disposition: ADMITTED INPATIENT Admit to: Tele Condition: Guarded Additional Instructions: [address] [address] Ph: [phone] DIAGNOSTIC IMAGING Diagnostic Imaging Report : [id number] Signed PATIENT: BRUCE PARKER ACCT: [id number] UNIT: [id number] : 1955 LOC: ER ROOM / BED: / AGE / SEX: 69 / F ADM STATUS: REG ER SERVICE [id number] ORDERING PHYSICIAN: SAEID CARTER DO PROCEDURE(s): ABPL - CT AB PEL WO CON-NO ORAL OR IV REASON: abd pain ORDER NUMBER(s): [id number], ACCESSION NUMBER(s): [id number] Procedure: CT CT AB PEL WO CON-NO ORAL OR IV 12/23/2024 03:43 PM Indication: abd pain Comparison Study: CT CT AB PEL WO CON-NO ORAL OR IV on DOS: 04/03/24, CT CT AB PEL WO CON-NO ORAL OR IV on DOS: 03/14/24, CT CT AB PEL WO CON-NO ORAL OR IV on DOS: 03/06/24 Technique: Axial images were obtained and reformatted in coronal and sagittal planes. All CT scans at this medical facility are performed using dose modulation techniques as appropriate to a performed exam including the following: Automated exposure control was utilized; adjustment of the MA and/or KV according to patient size; and use of iterative reconstruction technique. CT Dose: CTDI volume is 21.52 mGy. Dose-length product is 1270.96 mGy*cm FINDINGS: Lower Chest: Unremarkable. Hepatobiliary: Hepatomegaly and hepatic steatosis with areas of focal fatty sparing. Cholelithiasis without CT evidence of cholecystitis.. Spleen: Mild splenomegaly Pancreas: Unremarkable. Adrenal Glands: Unremarkable. tract: The kidneys are normal in size bilaterally . Mild right hydronephrosis and hydroureter due to a 6 mm obstructing stone in distal ureter close to the UVJ. A 4 mm stone is seen in the bladder lumen. A 5 mm left renal stone is seen. No bladder wall thickening. Several subcentimeter nonobstructing bilateral renal calculi are seen measuring up to 5 mm. The previously seen large right renal pelvis calculi are no longer visualized. The previously seen right nephrostomy tube is removed. GI tract: The stomach is grossly normal in appearance. No evidence of small bowel obstruction. The large bowel is unremarkable. The appendix is normal. Lymphatics: No mesenteric, retroperitoneal or periportal lymphadenopathy. Vasculature: The abdominal aorta is normal in caliber. Diffuse calcified plaque formation is noted. Pelvic Organs: Retroverted uterus. An IUD is noted in the good fundal position. No adnexal lesion Bones/soft tissues: No acute abnormality. Degenerative changes of the lumbar spine noted. Stable heterogeneity of the lumbar vertebrae likely due to underlying benign lesion such as hemangiomas Small fat-containing umbilical hernia. Other: None. IMPRESSION: 1. Mild right hydronephrosis and hydroureter due to a 6 mm obstructing stone in distal ureter adjacent to the UVJ. ATED BY: MAGUE WARD MD DICTATED DATE/TIME: 12/23/241617 SIGNED BY: MAGUE WARD MD SIGNED DATE/TIME: 12/23/241617 CC: Discharged With: Self Critical Care Note Critical Care Time?: No I personally scribed for SAEID CARTER DO ([email or web address]) on 12/23/24 at 15:47. Electronically submitted by Garima Adam ([email or web address]). I personally scribed for SAEID CARTER J DO ([email or web address]) on 12/23/24 at 16:08. Electronically submitted by Garima Adam ([email or web address]). I personally scribed for SAEID CARTER J DO ([email or web address]) on 12/23/24 at 16:37. Electronically submitted by Garima Adam ([email or web address]). I personally scribed for RANJANA CARTERE J DO ([email or web address]) on 12/23/24 at 23:51. Electronically submitted by Lalito Barber ([email or web address]). SAEID CARTER DO December 23, 2024 15:47
--- NOTE | 2024-12-23 16:20 | DVH ---
Procedure: CT CT AB PEL WO CON-NO ORAL OR IV 12/23/2024 03:43 PM Indication: abd pain Comparison Study: CT CT AB PEL WO CON-NO ORAL OR IV on DOS: 04/03/24, CT CT AB PEL WO CON-NO ORAL OR IV on DOS: 03/14/24, CT CT AB PEL WO CON-NO ORAL OR IV on DOS: 03/06/24 Technique: Axial images were obtained and reformatted in coronal and sagittal planes. All CT scans at this medical facility are performed using dose modulation techniques as appropriate to a performed e xam including the following: Automated exposure control was utilized; adjustment of the MA and/or KV according to patient size; and use of iterative reconstruction technique. CT Dose: CTDI volume is 21. 52 mGy. Dose-length product is 1270.96 mGy*cm FINDINGS: Lower Chest: Unremarkable. Hepatobiliary: Hepatomegaly and hepatic steatosis with areas of focal fatty sparing. Cholelithiasis without CT evidence of cholecystitis.. Spleen: Mild splenomegaly Pancreas: Unremarkable. Adrenal Glands: Unremarkable. tract: The kidneys are normal in size bilaterally . Mild right hydronephrosis and hydroureter due to a 6 mm obstructing stone in distal ureter close to the UVJ. A 4 mm stone is seen in the bladder kaya men. A 5 mm left renal stone is seen. No bladder wall thickening. Several subcentimeter nonobstructin g bilateral renal calculi are seen measuring up to 5 mm. The previously seen large right renal pelvi s calculi are no longer visualized. The previously seen right nephrostomy tube is removed. GI tract: The stomach is grossly normal in appearance. No evidence of small bowel obstruction. The la rge bowel is unremarkable. The appendix is normal. Lymphatics: No mesenteric, retroperitoneal or periportal lymphadenopathy. Vasculature: The abdominal aorta is normal in caliber. Diffuse calcified plaque formation is noted. Pelvic Organs: Retroverted uterus. An IUD is noted in the good fundal position. No adnexal lesion Bones/soft tissues: No acute abnormality. Degenerative changes of the lumbar spine noted. Stable hete rogeneity of the lumbar vertebrae likely due to underlying benign lesion such as hemangiomas Small fa t-containing umbilical hernia. Other: None. IMPRESSION: 1. Mild right hydronephrosis and hydroureter due to a 6 mm obstructing stone in distal ureter adjacen t to the UVJ.
[2024-12-23 16:32] LABS: Basophils # (auto) 0.1 10 ^3/uL (0-0.2); Basophils % (auto) 0.9 % (0.0-2.0); Eosinophils # (auto) 0.1 10 ^3/uL (0-0.8); Eosinophils % (auto) 1.5 % (0.0-7.0); Hematocrit 39.4 % (36.0-46.0); Hemoglobin 13.2 g/dL (12.2-16.2); Lymphocytes # (auto) 2.2 10 ^3/uL (0.4-5.4); Lymphocytes % (auto) 27.4 % (10.0-50.0); Mean Corpuscular Hemoglobin 27.9 pg (28.0-32.0); Mean Corpuscular Hgb Conc. 33.6 g/dL (32.0-36.0); Mean Corpuscular Volume 82.9 fL (80.0-100.0); Monocytes # (auto) 0.4 10 ^3/uL (0-1.3); Monocytes % (auto) 5.2 % (0.0-12.0); Neutrophils # (auto) 5.3 10 ^3/uL (1.6-8.6); Nucleated Red Blood Cells % 0.1 %; Platelet Count (auto) 141 10^3/uL (140-450); Red Blood Cells 4.75 10^6/uL (4.0-5.20); White Blood Cell 8.1 10^3/uL (4.4-10.8)
[2024-12-23 16:54] LABS: Alkaline Phosphatase 78 U/L (46-116); Anion Gap 11 (5-15); BUN/Creatinine Ratio 26.1 (10.0-20.0); Bilirubin, Total 0.3 mg/dL (0.2-1.0); Calcium 9.7 mg/dL (8.7-10.4); Carbon Dioxide 25 mmol/L (20-31); Chloride 104 mmol/L (98-107); Lipase 51 U/L (12-53); Sodium 140 mmol/L (136-145); Total Protein 7.7 g/dL (5.7-8.2)
[2024-12-23 16:56] LABS: Alanine Aminotransferase 84 U/L (7-40); Albumin 4.9 g/dL (3.2-4.8); Aspartate Aminotransferase 57 U/L (13-40); Blood Urea Nitrogen 24 mg/dL (9-23); Glucose 160 mg/dL (74-106)
[2024-12-23] MEDS: cefTRIAXone 1GM/50ML D5W 50 ML IV ONE (17:00)
--- NOTE | 2024-12-23 17:12 | DVHHP2 ---
History of Present Illness Reason for Visit: Abdominal pain History of Present Illness 69-year-old female past medical history kidney stones surgical history kidney stones surgery chief complaint patient states that she has been having pain on her right side that radiates to her lower abdomen that started yesterday. Patient states he did see a stone yesterday but today when she came in the pain was so severe she went to CT scan and after the CT scan she noticed there was a pieces stone in her urine. Patient denies any blood in her urine no difficulty urine no flank pain no chest pain no shortness with the breath when evaluating patient's labs and imaging ceftriaxone was given fentanyl Flomax Heartwell CBC was unremarkable troponin was negative glucose was 116 lactate was 1.8 AST was [address] scan of the abdomen pelvis showed mild right hydronephrosis in hydro ureter along with a 60 mL meter obstructing stone in distal UVJ. With these findings we will admit patient IV hydration pain management and we will consult Urology. Past Medical History See HPI above Past Surgical History See HPI above Family History Reviewed, non-contributory to the management of this case. Past Social History The patient lives at home, denies smoking, alcohol or illicit drugs abuse. Review of Systems Constitutional: No: Fever, Chills, Sweats, Weakness, Malaise, Other Eyes: No: Pain, Vision change, Conjunctivae inflammation, Eyelid inflammation, Other, Redness ENT: No: Ear pain, Ear discharge, Nose pain, Nose discharge, Nose congestion, Mouth pain, Mouth swelling, Throat pain, Throat swelling, Other Respiratory: No: Cough, Dry, Shortness of breath, SOB with excertion, Wheezing, Hemoptysis, Pleuritic Pain, Sputum, Wheezing, Other Cardiovascular: No: Chest Pain, Palpitations, Orthopnea, Paroxysmal Noc. Dyspnea, Edema, Lt Headedness, Other Gastrointestinal: Nausea, Vomiting, Abdominal Pain; No: Diarrhea, Constipation, Melena, Hematochezia, Other Genitourinary: Dysuria; No Frequency, No Incontinence, No Hematuria, No Retention, No Other Musculoskeletal: No: other, neck pain, shoulder pain, arm pain, back pain, hand pain, leg pain, foot pain Skin: No: Rash, Lesions, Jaundice, Bruising, Other Neurological: No: Weakness, Numbness, Incoordination, Change in speech, Confusion, Seizures, Other Allergies: Coded Allergies: Acetaminophen (Verified Allergy, Mild, VOMITING, 03/08/24) Hydrocodone (Verified Allergy, Mild, VOMITING, 03/08/24) Exam Vital Signs Vital Signs Date Time Temp Pulse Resp B/P (MAP) Pulse Ox O2 Delivery O2 Flow Rate FiO2 12/23/24 15:58 97.3 95 16 197/83 (121) 96 97.3 General Appearance: Alert, Oriented X3, Cooperative, No acute distress HEENT: Atraumatic, PERRLA, EOMI, Mucous membr. moist/pink Respiratory: Clear to auscultation, Normal air movement Cardiovascular: Regular rate, Normal S1, Normal S2, No murmurs Abdominal: Normal bowel sounds, Soft, No tenderness, No hepatospenomegaly, No masses, Other (No CVA tenderness) Extremities: No clubbing, No cyanosis, No edema, Normal pulses, No tenderness/swelling Skin: No rashes, No breakdown, No significant lesion Neuro: Normal gait, Normal speech, Strength at 5/5 X4 ext, Normal tone, Sensation intact, Cranial nerves 3-12 NL Psych/Mental Status: Mental status NL, Mood NL Labs/Xrays CT scan abdomen pelvis shows mild right her drove uterine nephrosis along with 6 mm obstructing stone in his distal UVJ I reviewed labs, imaging CT scan abdomen pelvis, EKG and all diagnostic studies on this patient from ED records and the medical chart Labs Test 12/23/24 16:13 Range/Units White Blood Count 8.1 4.4-10.8 10^3/uL Red Blood Count 4.75 4.0-5.20 10^6/uL Hemoglobin 13.2 12.2-16.2 g/dL Hematocrit 39.4 36.0-46.0 % Mean Corpuscular Volume 82.9 80.0-100.0 fL Mean Corpuscular Hemoglobin 27.9 L 28.0-32.0 pg Mean Corpuscular Hemoglobin Concent 33.6 32.0-36.0 g/dL Red Cell Distribution Width 15.0 H 11.8-14.3 % Platelet Count 141 140-450 10^3/uL Mean Platelet Volume 9.1 6.9-10.8 fL Neutrophils (%) (Auto) 65.0 37.0-80.0 % Lymphocytes (%) (Auto) 27.4 10.0-50.0 % Monocytes (%) (Auto) 5.2 0.0-12.0 % Eosinophils (%) (Auto) 1.5 0.0-7.0 % Basophils (%) (Auto) 0.9 0.0-2.0 % Neutrophils # (Auto) 5.3 1.6-8.6 10 ^3/uL Lymphocytes # (Auto) 2.2 0.4-5.4 10 ^3/uL Monocytes # (Auto) 0.4 0-1.3 10 ^3/uL Eosinophils # (Auto) 0.1 0-0.8 10 ^3/uL Basophils # (Auto) 0.1 0-0.2 10 ^3/uL Nucleated Red Blood Cells 0.1 % Sodium Level 140 136-145 mmol/L Potassium Level 4.0 3.5-5.1 mmol/L Chloride Level 104 98-107 mmol/L Carbon Dioxide Level 25 20-31 mmol/L Anion Gap 11 5-15 Blood Urea Nitrogen 24 H 9-23 mg/dL Creatinine 0.92 0.550-1.02 mg/dL Glomerular Filtration Rate Calc 67 >90 mL/min BUN/Creatinine Ratio 26.1 H 10.0-20.0 Serum Glucose 160 H 74-106 mg/dL Lactic Acid Level 1.8 0.4-2.0 mmol/L Calcium Level 9.7 8.7-10.4 mg/dL Total Bilirubin 0.3 0.2-1.0 mg/dL Aspartate Amino Transferase (AST) 57 H 13-40 U/L Alanine Aminotransferase (ALT) 84 H 7-40 U/L Alkaline Phosphatase 78 46-116 U/L Troponin I High Sensitivity 5 </=34 ng/L Total Protein 7.7 5.7-8.2 g/dL Albumin 4.9 H 3.2-4.8 g/dL Lipase 51 12-53 U/L Assessment/Plan Assessment/Plan acute right kidney stones with mild hydronephrosis and obstructing stone 6mm found on ct scan ordered ceftriaxone for now Ordered Flomax ordered IV fluids Ordered morphine as needed for pain Ordered Zofran as needed for nausea Consulted urology follow-up recs Strict I/O's ordered ua chronic problems pyelonephritis with right nephrostomy tube Right renal stones and hydronephrosis status post nephrostomy tube placement placed 02/[address] carballo with removal UTI Chronic Gallstones with sludge HTN DM2 ISS Dyslipidemia Status post right ureteroscopic laser lithotripsy and right ureteral stent placement FEN/PPx omperazole No DVT prophylaxis since patient is ambulatory Diet IV fluids Plan admit to medicine urology evaluation Plan discussed with: Patient Date of Service: December 23, 2024 Billing Provider: SEN PALACIOS DNP Common Visit Codes: [id number] INP/OBS CARE (HIGH) SEN PALACIOS DNP December 23, 2024 17:12
[2024-12-23] MEDS: fentaNYL CITRATE 100 MCG/2 ML VL IV ONE (17:21)
[2024-12-23 17:45] LABS: Urine Bacteria FEW /hpf (None Seen); Urine Blood 3+ /uL (Negative); Urine Clarity Turbid (Clear); Urine Color Colorless (Yellow); Urine Mucus FEW (None Seen); Urine Protein, UAD 1+ (Negative); Urine Specific Gravity 1.015 (1.001-1.035); Urine Squamous Epithelial Cell MOD /hpf (<5); Urine Urobilinogen Normal (Negative); Urine WBC 6 /HPF (0-5)
[2024-12-23] MEDS ORDERED: ONDANSETRON HCL 4 MG/2 ML VIAL IV PRN (18:00)
[2024-12-23] MEDS ORDERED: DOCUSATE SOD 100 MG CAP PO PRN (18:00)
[2024-12-23] MEDS ORDERED: cefTRIAXone 1GM/50ML D5W 50 ML IV ONE (18:00)
[2024-12-23] MEDS ORDERED: NITROGLYCERIN 0.4 MG SL TAB SL PRN (18:00)
[2024-12-23] MEDS ORDERED: DEXTROSE (50%) 50ML SYRG IV PRN ×2 (18:00→18:45)
[2024-12-23] MEDS ORDERED: MORPHINE SULFATE 4 MG/ML SYR/VIAL IV PRN (18:00)
[2024-12-23] MEDS ORDERED: TAMSULOSIN HYDROCHLORIDE 0.4 MG CAP PO ONE (18:00)
[2024-12-23] MEDS: SODIUM CHLORIDE 0.9% 1,000 ML IV SCH (18:00)
[2024-12-23] MEDS ORDERED: ACCU-CHEK COMFORT CURVE STRIP VI SCH (22:00)
[2024-12-23] MEDS: InsuLIN REG 1unit/0.01ml Soln (100units/ml) SC SCH (22:00)
[2024-12-23] MEDS: ACCU-CHEK COMFORT CURVE STRIP VI SCH (22:00)
[2024-12-23] MEDS ORDERED: InsuLIN REG 1unit/0.01ml Soln (100units/ml) SC SCH (22:00)
[2024-12-23] MEDS: TAMSULOSIN HYDROCHLORIDE 0.4 MG CAP PO SCH (23:24)
[2024-12-23 23:30] VITALS: PULSE 88; RESP 20; O2SAT 98
[2024-12-24 00:07] VITALS: BP 131/57; PULSE 90; RESP 17; TEMP 97.6; O2SAT 94
[2024-12-24 00:47] VITALS: BP 131/57; PULSE 90; RESP 18; TEMP 97.6; O2SAT 94
[2024-12-24 05:00] VITALS: BP 108/64; PULSE 86; RESP 17; TEMP 97.4; O2SAT 95
[2024-12-24 06:40] LABS: Basophils # (auto) 0 10 ^3/uL (0-0.2); Basophils % (auto) 0.6 % (0.0-2.0); Eosinophils # (auto) 0 10 ^3/uL (0-0.8); Eosinophils % (auto) 0.6 % (0.0-7.0); Hemoglobin 11.5 g/dL (12.2-16.2); Lymphocytes # (auto) 1.9 10 ^3/uL (0.4-5.4); Lymphocytes % (auto) 29.5 % (10.0-50.0); Mean Corpuscular Hemoglobin 27.4 pg (28.0-32.0); Mean Corpuscular Hgb Conc. 32.9 g/dL (32.0-36.0); Mean Corpuscular Volume 83.4 fL (80.0-100.0); Monocytes # (auto) 0.3 10 ^3/uL (0-1.3); Monocytes % (auto) 5.1 % (0.0-12.0); Neutrophils % (auto) 64.2 % (37.0-80.0); Nucleated Red Blood Cells % 0.2 %; Platelet Count (auto) 118 10^3/uL (140-450); Red Cell Distribution Width 15.3 % (11.8-14.3); White Blood Cell 6.3 10^3/uL (4.4-10.8)
[2024-12-24 06:57] LABS: Albumin 4.2 g/dL (3.2-4.8); Alkaline Phosphatase 68 U/L (46-116); Anion Gap 9 (5-15); Aspartate Aminotransferase 36 U/L (13-40); BUN/Creatinine Ratio 25.9 (10.0-20.0); Bilirubin, Total 0.4 mg/dL (0.2-1.0); Blood Urea Nitrogen 21 mg/dL (9-23); Calcium 9.6 mg/dL (8.7-10.4); Carbon Dioxide 24 mmol/L (20-31); Potassium 3.8 mmol/L (3.5-5.1); Sodium 141 mmol/L (136-145); Total Protein 6.6 g/dL (5.7-8.2)
[2024-12-24] MEDS ORDERED: PATIENTS OWN MEDICATION (Omeprazole (Omeprazole Dr) 1 CAP) PO SCH (07:00)
[2024-12-24 07:06] LABS: Alanine Aminotransferase 62 U/L (7-40); Chloride 108 mmol/L (98-107); Glucose 235 mg/dL (74-106)
[2024-12-24 08:00] VITALS: PULSE 80; RESP 18; O2SAT 94
--- NOTE | 2024-12-24 08:49 | DVHDS2 ---
Discharge Summary Date of Admission December 23, 2024 at 18:00 Date of Discharge: December 24, 2024 Labs/Diagnostic Data: Laboratory Results Test 12/24/24 06:27 12/24/24 05:32 12/23/24 17:08 12/23/24 16:13 POC Glucose 206 mg/dl (70-106) White Blood Count 6.3 10^3/uL (4.4-10.8) Red Blood Count 4.20 10^6/uL (4.0-5.20) Hemoglobin 11.5 g/dL (12.2-16.2) Hematocrit 35.0 % (36.0-46.0) Mean Corpuscular Volume 83.4 fL (80.0-100.0) Mean Corpuscular Hemoglobin 27.4 pg (28.0-32.0) Mean Corpuscular Hemoglobin Concent 32.9 g/dL (32.0-36.0) Red Cell Distribution Width 15.3 % (11.8-14.3) Platelet Count 118 10^3/uL (140-450) Mean Platelet Volume 9.6 fL (6.9-10.8) Neutrophils (%) (Auto) 64.2 % (37.0-80.0) Lymphocytes (%) (Auto) 29.5 % (10.0-50.0) Monocytes (%) (Auto) 5.1 % (0.0-12.0) Eosinophils (%) (Auto) 0.6 % (0.0-7.0) Basophils (%) (Auto) 0.6 % (0.0-2.0) Neutrophils # (Auto) 4.0 10 ^3/uL (1.6-8.6) Lymphocytes # (Auto) 1.9 10 ^3/uL (0.4-5.4) Monocytes # (Auto) 0.3 10 ^3/uL (0-1.3) Eosinophils # (Auto) 0 10 ^3/uL (0-0.8) Basophils # (Auto) 0 10 ^3/uL (0-0.2) Nucleated Red Blood Cells 0.2 % Sodium Level 141 mmol/L (136-145) Potassium Level 3.8 mmol/L (3.5-5.1) Chloride Level 108 mmol/L (98-107) Carbon Dioxide Level 24 mmol/L (20-31) Anion Gap 9 (5-15) Blood Urea Nitrogen 21 mg/dL (9-23) Creatinine 0.81 mg/dL (0.550-1.02) Glomerular Filtration Rate Calc 78 mL/min (>90) BUN/Creatinine Ratio 25.9 (10.0-20.0) Serum Glucose 235 mg/dL (74-106) Calcium Level 9.6 mg/dL (8.7-10.4) Total Bilirubin 0.4 mg/dL (0.2-1.0) Aspartate Amino Transferase (AST) 36 U/L (13-40) Alanine Aminotransferase (ALT) 62 U/L (7-40) Alkaline Phosphatase 68 U/L (46-116) Total Protein 6.6 g/dL (5.7-8.2) Albumin 4.2 g/dL (3.2-4.8) Troponin I High Sensitivity 4 ng/L (</=34) Lactic Acid Level 1.8 mmol/L (0.4-2.0) Lipase 51 U/L (12-53) Test 12/23/24 15:40 Urine Color Colorless (Yellow) Urine Clarity Turbid (Clear) Urine pH 5.0 (5.0-9.0) Urine Specific [place] 1.015 (1.001-1.035) Urine Protein 1+ (Negative) Urine Ketones Negative (Negative) Urine Blood 3+ /uL (Negative) Urine Nitrite Negative (Negative) Urine Bilirubin Negative (Negative) Urine Urobilinogen Normal mg/dL (Negative) Urine Leukocyte Esterase Negative /uL (Negative) Urine RBC 239 /hpf (0 - 4) Urine Microscopic WBC 6 /HPF (0-5) Urine Squamous Epithelial Cells Mod /hpf (<5) Urine Uric Acid Crystals Few /hpf (None Seen) Urine Bacteria Few /hpf (None Seen) Urine Mucus Few (None Seen) Urine Glucose Normal mg/dL (Normal) Other Laboratory Tests 12/24/24 05:32 Brief Hx & Hospital Course: Final diagnoses: Right ureteral stone 6 mm, passed Mild hydronephrosis, resolved UTI Chronic Gallstones with sludge HTN DM2 ISS Dyslipidemia 69-year-old female came with right flank pain. Before she came to the emergency room she passed the stone at home and then she came here she has a CT scan of the abdomen and pelvis which showed 6 mm stone at the distal ureter, she was admitted and treated with IV fluid and IV antibiotics and then later in the emergency room she passed another stone Following that overnight and until today she is asymptomatic, no more pain, urine is clear The patient is asymptomatic now and therefore she will be discharged home Follow up with the primary care physician as soon as possible She takes hydrochlorothiazide at home which should be discontinued as it might cause kidney stones Resume other home medications The stone that the patient has with her we will be sent to the lab for analysis Condition at Discharge: Stable Final Diagnosis/Problems List Right nephrolithiasis Spontaneous passing of the right kidney stone Chronic Gallstones with sludge HTN DM2 Dyslipidemia Discharge Disposition: Home SNF Discharge Will this Physician continue t: No Discharge Instruct/Medications Diet: Cardiac 2g Na,low cholest Activity: No Restrictions, As Tolerated Follow Up/Referral: PCP KIM Medications: Same home medications Stop hydrochlorothiazide, it might cause kidney stones Discharge Statement: "Patient was advised to return to the ER or call 911 if any headaches, dizziness, shortness of breath, chest pain, abdominal pain, bleeding, fevers, or worsening of medical condition. Patient was counseled about treatment plan, medications, possible side effects, patientverbalized understanding. All questions were answered to the best of my ability. This discharge took greater then 30 minutes in planning, reviewing documentation, counseling the patient, and discussing with other team members." ASSESSMENT ASSESSMENT Assessment Right nephrolithiasis Spontaneous passing of the right kidney stone Chronic Gallstones with sludge HTN DM2 Dyslipidemia Date of Service: December 24, 2024 Billing Provider: BHAVNA SEARS MD Common Visit Codes: NOT BILLABLE BHAVNA SEARS MD December 24, 2024 08:49
[2024-12-24] MEDS ORDERED: NITR-87 PO (08:50)
[2024-12-24 09:00] VITALS: BP 125/56; PULSE 80; RESP 18; TEMP 97.5; O2SAT 94
[2024-12-24] MEDS: cefTRIAXone 1GM/50ML D5W 50 ML IV SCH (09:10)
[2024-12-24] MEDS: PANTOPRAZOLE 40 MG TAB PO SCH (09:11)
[2024-12-24] MEDS: hydroCHLOROthiazide 25 MG TAB PO SCH (09:11)
[2024-12-24] MEDS: LISINOPRIL 20 MG TAB PO SCH (09:11)
[2024-12-24 10:25] VITALS: BP 125/56
[2024-12-24] MEDS ORDERED: TAMSULOSIN HYDROCHLORIDE 0.4 MG CAP PO SCH (18:00)
[2024-12-24] MEDS ORDERED: ATORVASTATIN 20 MG TAB PO SCH (22:00)
== END 2024-12-24 10:40 | disposition home or self-care (01) | DRG 690 ==
LOC: ER 15:29 → OVERFLOW 18:00 → CENTRAL 23:57
PROVIDERS: ADMIT Internal Medicine Geriatric Medicine; ATTEND Internal Medicine Geriatric Medicine
DX: N13.6 Pyonephrosis (principal); E11.9 Type 2 diabetes mellitus without complications; I10 Essential (primary) hypertension; E78.5 Hyperlipidemia, unspecified; K80.20 Calculus of gallbladder without cholecystitis without obstruction; Z87.442 Personal history of urinary calculi; Z88.6 Allergy status to analgesic agent; Z88.5 Allergy status to narcotic agent; Z79.2 Long term (current) use of antibiotics; Z79.899 Other long term (current) drug therapy; Z79.4 Long term (current) use of insulin; Z79.84 Long term (current) use of oral hypoglycemic drugs
CPT/HCPCS: 36415; 74176; 80053; 81001; 82360; 82962; 83605; 83690; 84484; 85025; 96365; 96375; G0378; J1815